=== PATIENT | female | born 1975 | race Caucasian/White ===

== ENCOUNTER 2017-12-19 01:22 | Inpatient (IN) | payer OTHER ==
[2017-12-19 01:47] VITALS: BMI 29.2
[2017-12-19] MEDS ORDERED: ALBUTEROL SO4 2.5/IPRATROPIUM 0.5 INH SOL 3 ML VIAL.NEB. NEB ONE ×2 (02:10→02:16)
--- NOTE | 2017-12-19 02:10 | PDOC ---
History of Present Illness - General History Source: Patient Exam Limitations: No Limitations - History of Present Illness Initial Comments: 12/19/17 02:23 The patient is a 42 year old female with a significant past medical history of asthma, anemia and AVM who presents to the ED s/p asthma exacerbation earlier today. The patient reports a sudden onset of shortness of breath and a non productive constant cough. She states she used her asthma inhaler 5 times tonight with no relief of present symptoms. Patient reports a similar episode 2 months ago and was treated with steroids. Denies fever or chills. Denies nausea, vomiting, or diarrhea. Denies chest pain or palpitations. Denies any other symptoms. <Denae Pereira - Last Filed: 12/19/17 06:00> <Kayla Taylor - Last Filed: 12/24/17 19:52> - General Chief Complaint: Asthma Stated Complaint: PALPITATION Time Seen by Provider: 12/19/17 01:55 Past History <Denae Pereira - Last Filed: 12/19/17 06:00> - Past Medical History Anemia: No Asthma: Yes Cancer: No Cardiac Disorders: No CVA: No COPD: No DVT: No Dementia: No Diabetes: No Dialysis: No GI Disorders: No Disorders: No HTN: No Hypercholesterolemia: No Kidney Stones: No Liver Disease: No Psychiatric Problems: No Seizures: No Thyroid Disease: No Lung CA: No - Reproductive History (#): 7 Para: 4 - Suicide/Smoking/Psychosocial Hx Smoking Status: No Smoking History: Never smoked Have you smoked in the past 12 months: No Number of Cigarettes Smoked Daily: 0 Hx Alcohol Use: No Drug/Substance Use Hx: No Substance Use Type: None Hx Substance Use Treatment: No <Kayla Taylor - Last Filed: 12/24/17 19:52> - Past Medical History Allergies/Adverse Reactions: Allergies Allergy/AdvReac Type Severity Reaction Status Date / Time No Known Allergies Allergy Verified 10/15/14 18:54 Home Medications: Ambulatory Orders Albuterol Sulfate Inhaler - [Ventolin HFA Inhaler -] 2 inh PO Q4H 12/19/17 Ferrous Sulfate [Feosol] 325 mg PO BID #60 ud 12/24/17 Loratadine [Claritin -] 10 mg PO DAILY tablet 04/14/18 predniSONE [Deltasone -] 40 mg PO DAILY #5 tablet 12/24/17 Review of Systems - Review of Systems Able to Perform ROS?: Yes Comments:: 12/19/17 02:23 CONSTITUTIONAL: Absent: fever, chills, diaphoresis, generalized weakness, malaise, loss of appetite HEENT: Absent: rhinorrhea, nasal congestion, throat pain, throat swelling, difficulty swallowing, mouth swelling, ear pain, eye pain, visual Changes CARDIOVASCULAR: Absent: chest pain, syncope, palpitations, irregular heart rate, lightheadedness , peripheral edema RESPIRATORY: + cough, shortness of breath Absent: dyspnea with exertion, orthopnea, wheezing, stridor, hemoptysis GASTROINTESTINAL: Absent: abdominal pain, abdominal distension, nausea, vomiting, diarrhea, constipation, melena, hematochezia GENITOURINARY: Absent: dysuria, frequency, urgency, hesitancy, hematuria, flank pain, genital pain MUSCULOSKELETAL: Absent: myalgia, arthralgia, joint swelling SKIN: Absent: rash, itching, pallor HEMATOLOGIC/IMMUNOLOGIC: Absent: easy bleeding, easy bruising, lymphadenopathy, frequent infections ENDOCRINE: Absent: unexplained weight gain, unexplained weight loss, heat intolerance, cold intolerance NEUROLOGIC: Absent: headache, focal weakness or paresthesias, dizziness, unsteady gait, seizure, mental status changes, bladder or bowel incontinence PSYCHIATRIC: Absent: anxiety, depression, suicidal or homicidal ideation, hallucinations. All Other Systems: Reviewed and Negative <Denae Pereira - Last Filed: 12/19/17 06:00> *Physical Exam - Vital Signs Last Vital Signs Temp Pulse Resp BP Pulse Ox 99.3 F 119 H 24 109/94 97 12/19/17 01:41 12/19/17 01:41 12/19/17 01:41 12/19/17 01:41 12/19/17 01:41 - Physical Exam Comments: 12/19/17 02:23 GENERAL: Well developed, well nourished. Awake and alert. No acute distress. HEENT: Normocephalic, atraumatic. PERRLA, EOMI. No conjunctival pallor. Sclera are non- icteric. Moist mucous membranes. Oropharynx is clear. NECK: Supple. Full ROM. No JVD. Carotid pulses 2+ and symmetric, without bruits. No thyromegaly. No lymphadenopathy. CARDIOVASCULAR: Regular rate and rhythm. No murmurs, rubs, or gallops. Distal pulses are 2+ and symmetric. PULMONARY: No evidence of respiratory distress. Lungs clear to auscultation bilaterally. No wheezing, rales or rhonchi. ABDOMINAL: Soft. Non-tender. Non-distended. No rebound or guarding. No organomegaly. Normoactive bowel sounds. MUSCULOSKELETAL Normal range of motion at all joints. No bony deformities or tenderness. No CVA tenderness. EXTREMITIES: No cyanosis. No clubbing. No edema. No calf tenderness. SKIN: Warm and dry. Normal capillary refill. No rashes. No jaundice. NEUROLOGICAL: Alert, awake, appropriate. Cranial nerves 2-12 intact. No deficits to light touch and temperature in face, upper extremities and lower extremities. No motor deficits in the in face, upper extremities and lower extremities. Normoreflexic in the upper and lower extremities. Normal speech. Toes are down- going bilaterally. Gait is normal without ataxia. PSYCHIATRIC: Cooperative. Good eye contact. Appropriate mood and affect. <Denae Pereira - Last Filed: 12/19/17 06:00> - Vital Signs Last Vital Signs Temp Pulse Resp BP Pulse Ox 99.3 F 119 H 24 109/94 97 12/19/17 01:41 12/19/17 01:41 12/19/17 01:41 12/19/17 01:41 12/19/17 01:41 <Kayla Taylor - Last Filed: 12/24/17 19:52> Heart Score/ECG Review #1 12/19/17 02:26 Vent rate 110 bpm ME interval 140 ms QRS duration 82 ms Sinus tachycardia Non specific ST and T changes Reported by: Dr. Taylor <Denae Pereira - Last Filed: 12/19/17 06:00> ED Treatment Course - LABORATORY CBC & Chemistry Diagram: 12/19/17 02:20 12/19/17 02:20 <Denae Pereira - Last Filed: 12/19/17 06:00> - LABORATORY CBC & Chemistry Diagram: 12/24/17 11:43 12/24/17 11:43 <Kayla Taylor - Last Filed: 12/24/17 19:52> Medical Decision Making - Medical Decision Making 12/19/17 04:13 Pt comes with SOB; and cough they think this is her asthma. Pt has no wheezing in the ER, but sje is coughing. 12/19/17 04:14 Pt has a microcytic anemia. She also has hypokalemia. Pt also has EKG changes. 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
[2017-12-19] MEDS ORDERED: MAGNESIUM SULF 50% (8.12 MEQ/2 ML-1 GM VIAL) IVPB ONE (02:18)
[2017-12-19] MEDS ORDERED: methylPREDNISolone NA SUCC 125 MG/2 ML VIAL IVPB ONE (02:18)
[2017-12-19] MEDS ORDERED: SODIUM CHLORIDE 0.9% 500 ML INFUS.BAG IV ONE (02:25)
[2017-12-19 02:28] LABS: BASO % 0.6 % (0-2.0); EOS % 0.1 % (0-4.5); LYMPH % 13.6 % (8-40); MCHC 30.8 g/dl (32.0-36.0); MEAN CELL VOLUME 57.3 fl (80-96); MEAN PLT VOLUME 8.9 fl (7.5-11.1); MONO % 7.1 % (3.8-10.2); NEUT % 78.6 % (42.8-82.8); PLATELET COUNT 242 K/MM3 (134-434); RBC 4.53 M/mm3 (3.60-5.2); RDW 21.9 % (11.6-15.6); WHITE BLOOD COUNT 9.7 K/mm3 (4.0-10.0)
[2017-12-19 02:42] LABS: ADD RBC MORPHOLOGY YES; ANISOCYTOSIS 2+; MCH 17.6 pg (25.7-33.7)
[2017-12-19] MEDS ORDERED: methylPREDNISolone NA SUCC 125 MG/2 ML VIAL ONE (02:50)
[2017-12-19] MEDS ORDERED: MAGNESIUM SULF 50% (8.12 MEQ/2 ML-1 GM VIAL) ONE (02:50)
[2017-12-19 02:55] LABS: ALBUMIN 4.4 g/dl (3.4-5.0); ALK PHOS 67 U/L (45-117); ANION GAP 12 (8-16); BILIRUBIN,TOTAL 0.2 mg/dL (0.2-1.0); BLOOD UREA NITROGEN 12 mg/dL (7-18); CALCIUM 9.3 mg/dL (8.5-10.1); CHLORIDE 106 mmol/L (98-107); CO2 22 mmol/L (21-32); CREATININE 0.7 mg/dL (0.55-1.02); GLUCOSE,RANDOM 172 mg/dL (74-106); POTASSIUM 3.3 mmol/L (3.5-5.1); SGOT/AST 19 U/L (15-37); SGPT/ALT 29 U/L (12-78); SODIUM 140 mmol/L (136-145); TOT PROT 8.1 g/dl (6.4-8.2)
[2017-12-19] MEDS ORDERED: POTASSIUM CHLORIDE ORAL LIQUID 20 MEQ/15 ML PO ONE (03:04)
[2017-12-19] MEDS ORDERED: POTASSIUM CHLORIDE ORAL LIQUID 20 MEQ/15 ML ONE ×2 (04:40→08:35)
--- NOTE | 2017-12-19 06:08 | HP ---
CHIEF COMPLAINT: SOB, non-productive cough, and chest tightness x 1 day duration PCP: Dr. Frazier HISTORY OF PRESENT ILLNESS: 42 y/o F with PMH asthma, anemia and AVM, who presents to the ED c/o SOB, non- productive cough, and chest tightness for one day duration. Pt states that her sx are of similar quality to her asthma exacerbations. Since her initial presentation, her chest tightness and SOB have resolved. Pt states that she was diagnosed with anemia fifteen years ago after receiving an IUD for control , after which she started to develop heavy periods. She continued to have heavy periods after the IUD was removed ten years later. Pt follows with her PMD every three months for her anemia, and states that two months ago her blood count was "relatively normal." She states that she was referred to a manager software development six months ago, but has not yet made an appointment. Currently, pt endorsing dizziness, but denies chest pain, SOB, N/V/D. Pt denies ever having a colonoscopy. ER course was notable for: (1) H/H: 05/07 (2) K 3.3, KCl 40mEq x 1 (3) Duoneb x 1 (4) Solumedrol 125mg IVPB x 1 (5) Mg Sulfate 2gm IVPB x 1 (6) [id number] Recent Travel: none PAST MEDICAL HISTORY: as above PAST SURGICAL HISTORY: none Social History: Smoking: denies Alcohol: denies Drugs: denies Family History: non-contributory Allergies No Known Allergies Allergy (Verified 10/15/14 18:54) HOME MEDICATIONS: Home Medications Medication Instructions Recorded Albuterol Sulfate Inhaler - 2 inh PO Q4H 12/19/17 [Ventolin Hfa Inhaler -] REVIEW OF SYSTEMS CONSTITUTIONAL: generalized weakness Absent: fever, chills, diaphoresis, malaise, loss of appetite, weight change HEENT: Absent: rhinorrhea, nasal congestion, throat pain, throat swelling, difficulty swallowing, mouth swelling, ear pain, eye pain, visual changes CARDIOVASCULAR: Absent: chest pain, syncope, palpitations, irregular heart rate, lightheadedness , peripheral edema RESPIRATORY: Absent: cough, shortness of breath, dyspnea with exertion, orthopnea, wheezing, stridor, hemoptysis GASTROINTESTINAL: Absent: abdominal pain, abdominal distension, nausea, vomiting, diarrhea, constipation, melena, hematochezia GENITOURINARY: Absent: dysuria, frequency, urgency, hesitancy, hematuria, flank pain, genital pain MUSCULOSKELETAL: Absent: myalgia, arthralgia, joint swelling, back pain, neck pain SKIN: Absent: rash, itching, pallor HEMATOLOGIC/IMMUNOLOGIC: Absent: easy bleeding, easy bruising, lymphadenopathy, frequent infections ENDOCRINE: Absent: unexplained weight gain, unexplained weight loss, heat intolerance, cold intolerance NEUROLOGIC: Absent: headache, focal weakness or paresthesias, dizziness, unsteady gait, seizure, mental status changes, bladder or bowel incontinence PSYCHIATRIC: Absent: anxiety, depression, suicidal or homicidal ideation, hallucinations. PHYSICAL EXAMINATION Vital Signs - 24 hr 12/19/17 01:41 Temperature 99.3 F Pulse Rate 119 H Respiratory 24 Rate Blood Pressure 109/94 O2 Sat by Pulse 97 Oximetry (%) GENERAL: A&Ox3, no acute distress EYES: PERRLA, EOMI, mild conjunctival pallor noted ENT: Moist mucus membranes NECK: No JVD LUNGS: CTA, no wheezes HEART: RRR, systolic murmur noted at 2nd R intercostal space ABDOMEN: Soft, nontender, BS present MUSCULOSKELETAL: No CVA Tenderness EXTREMITIES: 2+ pulses, no edema. NEUROLOGICAL: Cranial nerves II-XII intact. Laboratory Results - last 24 hr 12/19/17 12/19/17 12/19/17 02:20 02:20 02:20 WBC 9.7 D RBC 4.53 Hgb 8.0 L D Hct 26.0 L D MCV 57.3 L MCH 17.6 L MCHC 30.8 L RDW 21.9 H D Plt Count 242 MPV 8.9 D Neutrophils % 78.6 D Lymphocytes % 13.6 D Monocytes % 7.1 Eosinophils % 0.1 D Basophils % 0.6 Hypochromia 3+ Anisocytosis 2+ Microcytosis 3+ Sodium 140 Potassium 3.3 L Chloride 106 Carbon Dioxide 22 Anion Gap 12 BUN 12 Creatinine 0.7 Creat Clearance w eGFR > 60 Random Glucose 172 H Calcium 9.3 Total Bilirubin 0.2 D AST 19 ALT 29 Alkaline Phosphatase 67 Creatine Kinase 146 Troponin I 0.02 Total Protein 8.1 Albumin 4.4 Urine HCG, Qual 12/19/17 03:00 WBC RBC Hgb Hct MCV MCH MCHC RDW Plt Count MPV Neutrophils % Lymphocytes % Monocytes % Eosinophils % Basophils % Hypochromia Anisocytosis Microcytosis Sodium Potassium Chloride Carbon Dioxide Anion Gap BUN Creatinine Creat Clearance w eGFR Random Glucose Calcium Total Bilirubin AST ALT Alkaline Phosphatase Creatine Kinase Troponin I Total Protein Albumin Urine HCG, Qual Negative ASSESSMENT/PLAN: 42 y/o F with PMH asthma, anemia and AVM, who presents to the ED c/o SOB, non- productive cough, and chest tightness for one day duration. Pt admitted to for observation for evaluation of microcytic anemia. #Microcytic anemia: patient's hemoglobin is 8 -orthostatic vitals -type and screen, transfuse if hgb <7 -repeat CBC -hematology consultation appreciated -IV NS @ 100cc/hr -ferrous sulfate 325 TIDCM #Asthma: improved -monitor respiratory status -duonebs as needed #Hypokalemia: first time hypokalemic -K 3.3 -Repleted with KCl 40mEq in ED -F/u BMP, replete as needed #Mild Hyperglycemia: patient's glucose was 172 in ED and was told she had a high sugar -A1C #F/E/N -IV NS @ 100cc/hr -replete lytes as necessary -regular diet #PPX -early ambulation #Disposition -admit for observation Visit type - Emergency Visit Emergency Visit: Yes Care time: The patient presented to the Emergency Department on the above date and was hospitalized for further evaluation of their emergent condition. - New Patient This patient is new to me today: Yes Date on this admission: 12/19/17 - Critical Care Critical Care patient: No Hospitalist Screening - Colonoscopy Questionnaire Colonoscopy Questionnaire: Colonoscopy Questionnaire - Patient: 50 - 75 years old and never had a screening colonoscopy: Unknown History of colon or rectal polyps, or CA: Unknown History of IBD, Crohn's disease or UC: Unknown History of abdominal radiation therapy as a child: Unknown - Relative: 1 with colon or rectal CA, or polyps at age 60 or younger: Unknown Colon or rectal CA diagnosed at age 45 or younger: Unknown Multiple relatives with colon or rectal CA: Unknown - Outcome: Screening Result: Negative Screen
--- NOTE | 2017-12-19 06:47 | PN ---
Teaching Attending Note Name of Resident: Lawrence Ballesteros ATTENDING PHYSICIAN STATEMENT I saw and evaluated the patient. I reviewed the resident's note and discussed the case with the resident. I agree with the resident's findings and plan as documented. SUBJECTIVE: 42F with asthma, anemia presents initially to ED with SOB, wheezing, that have since improved since administration of Duonebs and steroids. However afterwards developed dizziness OBJECTIVE: Lungs: CTA CV: RRR no m/r/g Abd: soft, NTND Ext: no edema Hgb 8 MCV 50s K 3.3 ASSESSMENT AND PLAN: 42F with asthma exacerbation improved with ED management, however persisted dizziness that is likely from her anemia monitor on Obs check iron profile, start oral Iron, hematology eval obtain hgb levels from her outpatient PCP Dr Frazier office who checks q3mths hypokalemia - replete asthma mild exacerbation improving duonebs prn prednisone 40mg daily 5 days
[2017-12-19] MEDS ORDERED: ALBUTEROL SO4 2.5/IPRATROPIUM 0.5 INH SOL 3 ML VIAL.NEB. NEB PRN (07:25)
[2017-12-19] MEDS: SODIUM CHLORIDE 1,000 ML IV SCH ×2 (08:42→20:00)
[2017-12-19 09:14] LABS: HEMATOCRIT 24.3 % (32.4-45.2); HEMOGLOBIN 7.4 GM/dL (10.7-15.3); MCHC 30.5 g/dl (32.0-36.0); MEAN CELL VOLUME 57.4 fl (80-96); MEAN PLT VOLUME 8.7 fl (7.5-11.1); PLATELET COUNT 247 K/MM3 (134-434); RBC 4.24 M/mm3 (3.60-5.2); RDW 22.1 % (11.6-15.6); WHITE BLOOD COUNT 10.9 K/mm3 (4.0-10.0)
[2017-12-19 09:15] LABS: MCH 17.5 pg (25.7-33.7)
[2017-12-19] MEDS: FERROUS SO4 325 MG TABLET (FP) PO SCH ×3 (09:23→18:06)
[2017-12-19] MEDS: predniSONE 20 MG TABLET (UD) PO SCH (09:23)
[2017-12-19 09:34] LABS: ANION GAP 9 (8-16); BLOOD UREA NITROGEN 9 mg/dL (7-18); CALCIUM 8.5 mg/dL (8.5-10.1); CHLORIDE 109 mmol/L (98-107); CO2 21 mmol/L (21-32); CREATININE 0.6 mg/dL (0.55-1.02); GLUCOSE,RANDOM 153 mg/dL (74-106); MAGNESIUM 2.5 mg/dL (1.8-2.4); PHOSPHOROUS 3.1 mg/dL (2.5-4.9); POTASSIUM 4.7 mmol/L (3.5-5.1); SODIUM 139 mmol/L (136-145)
[2017-12-19] MEDS ORDERED: PANTOPRAZOLE SODIUM 40 MG VIAL IVPUSH ONE (13:30)
[2017-12-19] MEDS: ALBUTEROL SO4 2.5/IPRATROPIUM 0.5 INH SOL 3 ML VIAL.NEB. NEB SCH (17:00)
--- NOTE | 2017-12-19 17:16 | PN ---
Physical Exam: SUBJECTIVE: Patient seen and examined. OBJECTIVE: Vital Signs Period Temp Pulse Resp BP Sys/Persaud Pulse Ox Last 24 Hr 98.1 F-99.3 F 69-119 18-24 106-120/57-94 97-100 GENERAL: The patient is awake, alert, and fully oriented, in no acute distress. HEAD: Normal with no signs of trauma. EYES: PERRL, extraocular movements intact, sclera anicteric, conjunctiva clear. No ptosis. ENT: Ears normal, nares patent, oropharynx clear without exudates, moist mucous membranes. NECK: Trachea midline, full range of motion, supple. LUNGS: Breath sounds equal, clear to auscultation bilaterally HEART: Regular rate and rhythm, S1, S2 without murmur, rub or gallop. ABDOMEN: Soft, nontender, nondistended, normoactive bowel sounds EXTREMITIES: no edema. NEUROLOGICAL: Normal speech, gait not observed. PSYCH: Normal mood, normal affect. SKIN: Warm, dry, normal turgor, no rashes or lesions noted Laboratory Results - last 24 hr 12/19/17 12/19/17 12/19/17 02:20 02:20 02:20 WBC 9.7 D RBC 4.53 Hgb 8.0 L D Hct 26.0 L D MCV 57.3 L MCH 17.6 L MCHC 30.8 L RDW 21.9 H D Plt Count 242 MPV 8.9 D Neutrophils % 78.6 D Lymphocytes % 13.6 D Monocytes % 7.1 Eosinophils % 0.1 D Basophils % 0.6 Hypochromia 3+ Anisocytosis 2+ Microcytosis 3+ Sodium 140 Potassium 3.3 L Chloride 106 Carbon Dioxide 22 Anion Gap 12 BUN 12 Creatinine 0.7 Creat Clearance w eGFR > 60 Random Glucose 172 H Calcium 9.3 Phosphorus Magnesium Total Bilirubin 0.2 D AST 19 ALT 29 Alkaline Phosphatase 67 Creatine Kinase 146 Troponin I 0.02 Total Protein 8.1 Albumin 4.4 Vitamin B12 Serum Folate Urine HCG, Qual Blood Type Antibody Screen 12/19/17 12/19/17 12/19/17 03:00 09:05 09:05 WBC 10.9 H RBC 4.24 Hgb 7.4 L Hct 24.3 L MCV 57.4 L MCH 17.5 L MCHC 30.5 L RDW 22.1 H Plt Count 247 MPV 8.7 Neutrophils % Lymphocytes % Monocytes % Eosinophils % Basophils % Hypochromia Anisocytosis Microcytosis Sodium 139 Potassium 4.7 Chloride 109 H Carbon Dioxide 21 Anion Gap 9 BUN 9 Creatinine 0.6 Creat Clearance w eGFR Random Glucose 153 H Calcium 8.5 Phosphorus 3.1 Magnesium 2.5 H Total Bilirubin AST ALT Alkaline Phosphatase Creatine Kinase Troponin I Total Protein Albumin Vitamin B12 Serum Folate Urine HCG, Qual Negative Blood Type Antibody Screen 12/19/17 12/19/17 09:05 09:05 WBC RBC Hgb Hct MCV MCH MCHC RDW Plt Count MPV Neutrophils % Lymphocytes % Monocytes % Eosinophils % Basophils % Hypochromia Anisocytosis Microcytosis Sodium Potassium Chloride Carbon Dioxide Anion Gap BUN Creatinine Creat Clearance w eGFR Random Glucose Calcium Phosphorus Magnesium Total Bilirubin AST ALT Alkaline Phosphatase Creatine Kinase Troponin I Total Protein Albumin Vitamin B12 031240 H Serum Folate 23 H Urine HCG, Qual Blood Type O POSITIVE Antibody Screen Negative Active Medications Generic Name Dose Route Start Last Admin Trade Name Freq PRN Reason Stop Dose Admin Albuterol/Ipratropium 1 amp 12/19/17 16:00 Duoneb - NEB RQID DEBRA Ferrous Sulfate 325 mg 12/19/17 08:00 12/19/17 09:23 Feosol - PO 325 mg TIDCM DEBRA Administration Sodium Chloride 1,000 mls @ 100 mls/hr 12/19/17 06:45 12/19/17 08:42 Normal Saline - IV 100 mls/hr ASDIR DEBRA Administration Prednisone 40 mg 12/19/17 10:00 12/19/17 09:23 Deltasone - PO 12/24/17 09:59 40 mg DAILY DEBRA Administration Ranitidine HCl 150 mg 12/19/17 22:00 Zantac - PO BID DEBRA Imaging: Chest xray: clear lungs ASSESSMENT/PLAN: Patient is a 42 year old female with a significant past medical history of asthma, former ETOH/drug abuse, anemia and anteriovenous malformation with chronic headaches. Patient presents to the ED on 12/19 with c/o of shortness of breath, non productive cough, chest tightness and symptoms of dizziness with ambulation Pt states that she was diagnosed with anemia fifteen years ago after receiving an IUD and then developed heavy menstruation. Patient follows her PCP routiney for monitoring of her anemia. She has never received a blood transfusion. She was told she needed to follow up with a instructor looping, but was unable to for insurance reasons. She had workup for her AVM done at [facility] one year ago. She reports chronic headaches 06/21 without relief with Tylenol. Pulm: Asthma exacerbation, acute on chronic On prednisone 40mg daily x 5 days Supplemental oxygen Tolerating room air Pulm following Psyche: Former ETOH/drug abuse Recovering, patient does not want to be prescribed any narcotics Receives support outpatient Heme: Symptomatic anemia Monitor CBC Transfuse if hmg <7 Stool for occult blood ordered Consider CHIMNEY SWEEPER consult outpatient for further workup, possible hysterectomy for heavy periods and unintended wht loss of 35lbs in last 6 months as per pt Heme following Neuro: AV malformation with chronic headaches Will start on Fiorcet prn Head CT tomorrow (awaiting urine ) Monitor headaches Consider neuro consult outpatient Endocrine; Elevated Bgms, [id number] ordered F.E.N. Fluids: PO adequate Electrolytes: wnl Nutrition: regular diet Prophy: DVT: ambulatory Gi: Protonix full code Visit type - Emergency Visit Emergency Visit: Yes ED Registration Date: 12/19/17 Care time: The patient presented to the Emergency Department on the above date and was hospitalized for further evaluation of their emergent condition. - New Patient This patient is new to me today: No - Critical Care Critical Care patient: No - Discharge Referral [facility]erred [facility] No
--- NOTE | 2017-12-19 20:05 | CONSULT ---
Consult Consult Specialty:: Hematology-Oncology Referred by:: Dr Sharyn Beckwith Reason for Consultation:: anemia - History of Present Illness Chief Complaint: c/o SOB/asthma attack History of Present Illness: 42 y/o H Female with a Hx of anemia X 15 years (started after IUD placed - removed 10 years later ) , presumably from heavy menses and iron deficiency , Rx w oral iron supp on and off , but not in last 5-6 years ; pt reports she never had blood Tx ; she was admitted for increased SOB X 1 day not responding to inhaler. In ER , H/H was low at 8/26 w MCV 57 , plates 242K and WBC 9.7 w unremarkable diff ; 3+ microcytes and hypochromia . Pt had nl B12/folate, LFT's , Calcium,T.prot/albumin / CPK / HCG.CXR neg. Pt Rx w Prednisone , nebs, feeling somewhat better . She reports abnormal menstrual cycles over past year , w 2-3 months without menses , but then has heavy 10-15 day bleeding . She has occ lower abdominal cramps cramps . She also reports easy bruising X 3 months , linette legs ; she denies epistaxis/gingival bleeding/melena/BRBPR/hematuria/ hemoptysis. Pt is , 1 ab 1 miscarriage ( mole 2-3 yrs ago).She reports a 35 lb weight loss over 6 months but appetite OK ; mild fatigue . Cuurrently she has mild vaginal bleeding on and off since 4-18. 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: Other (hx AVM causing R eye blindness ) Cardio/Vascular: No: AFIB, Aneurysm, Aortic Insufficiency, Aortic Stenosis, CAD , CHF, Deep Vein Thrombosis, HTN, Hyperlipdemia, OK, Mitral Insufficiency, Mitral Stenosis, Murmur, Pulmonary Hypertension, Other Pulmonary: Yes: Asthma Gastrointestinal: No: Ascites, Cancer, Constipation, Crohn's Disease, Diverticulitis, Diverticulosis, Esophageal Varices, Gastritis, GERD, GI Bleed, Hemorrhoids, Hiatal Hernia, Inflamatory Bowel Disease, Irritable Bowel Disease, Pancreatitis, Peptic Ulcer Disease, Ulcerative Colitis, Other Hepatobiliary: No: Cirrhosis, Cholelithiasis, Cholecystitis, Choledocholithiasis , Hepatitis A, Hepatitis B, Hepatitis C, Other Reproductive: Yes: Other (perimenopausal, heavy irreg menses) ...LMP: 12/16/17 ...: 7 ...Para: 5 Heme/Onc: Yes: Anemia Infectious Disease: No: AIDS, C-Diff, Herpes Zoster, HIV, MRSA, STD's, Tuberculosis, VREF, Other Psych: No: Addictions, Anxiety, Bipolar, Depression, Panic, Psychosis, Schizophrenia, Other Musculoskeletal: No: Bursitis, Chronic low back pain, Hemiparesis, Hemiplegia, Osteoarthritis, Paraplegia, Other Rheumatology: No: Fibromyalgia, Gout, Lupus, Rheumatoid Arthritis, Sarcoidosis, Vasculitis, Other Endocrine: No: Alexis's Disease, Jeffrey's Disease, Diabetes Insipidus, Diabetes Mellitus, Hyperparathyroidism, Hyperthyroidism, Hypothyroidism, Osteopenia, SIADH, Other Dermatology: No: Basal Cell, Cellulitis, Eczema, Melanoma, Psoriasis, Squamous Cell, Other - Past Surgical History Past Surgical History: No: None, AAA Repair, AICD, Amputation, Appendectomy, Arthrosocopy, AV Fistula/Graft, Bariatric Surgery, Breast Biopsy, Bypass, CABG, Carotid Endarterectomy, Cataract Removal, Cholecystectomy, Colectomy, Colonoscopy, Colostomy, Craniotomy, , Cystectomy, Hernia Repair, Hysterectomy, Ileal Conduit, Ileosotomy, Joint Replacement, Kidney Transplant, Laminectomy, Liver Transplant, Mastectomy, Nephrectomy, Oopherectomy, Orchiectomy, Permanent Pacemaker, Prostatectomy, Splenectomy, Stent, Thoracotomy , TURP, Tonsillectomy, Tubal Ligation, Upper Endoscopy, Valve Replacement, Vasectomy, Vein Stripping/Ligation - Alcohol/Substance Use Hx Alcohol Use: Yes (in past , over 17 yrs ago) History of Substance Use: reports: Heroin - Smoking History Smoking history: Never smoked Have you smoked in the past 12 months: No Aproximately how many cigarettes per day: 0 Home Medications - Allergies Allergies/Adverse Reactions: Allergies Allergy/AdvReac Type Severity Reaction Status Date / Time No Known Allergies Allergy Verified 10/15/14 18:54 - Home Medications Home Medications: Ambulatory Orders Albuterol Sulfate Inhaler - [Ventolin Hfa Inhaler -] 2 inh PO Q4H 12/19/17 Family Disease History - Family Disease History Family Disease History: Heart Disease: Mother (CVA) Other Family History: 3 siblings -WNL ; hx anemia in several cousins/grandmother Review of Systems - Review of Systems Constitutional: reports: Unintentional Wgt. Loss, Other (hot flashes) Eyes: reports: Blurred Vision (right) HENT: reports: No Symptoms Neck: reports: No Symptoms Cardiovascular: reports: Shortness of Breath Respiratory: reports: Cough, SOB, SOB on Exertion, Wheezing Gastrointestinal: reports: Abdominal Pain (occ.) Genitourinary: reports: No Symptoms Breasts: reports: No Symptoms Reported, Other (recent mammogram nl) Musculoskeletal: reports: No Symptoms Integumentary: reports: Bruising, Rash (nafisa-oral rash , reportedly anxiety assoc) Physical Exam Vital Signs: Vital Signs Temperature 98.1 F 12/19/17 17:10 Pulse Rate 99 H 12/19/17 17:10 Respiratory Rate 20 12/19/17 17:10 Blood Pressure 120/57 12/19/17 17:10 O2 Sat by Pulse Oximetry (%) 100 12/19/17 13:02 Constitutional: Yes: Well Nourished, Anxious, Mild Distress, Pallor Eyes: Yes: Conjunctiva Clear, EOM Intact (decreased vision OD). No: WNL, Cataracts, Diplopia, Occular Prosthesis, PERRL, Ptosis, Sclera Icterus, Tearing , Other HENT: Yes: WNL, Atraumatic, Normocephalic Neck: Yes: WNL, Supple, Trachea Midline Cardiovascular: Yes: WNL, Regular Rate and Rhythm Respiratory: Yes: Diminished, Wheezes Gastrointestinal: Yes: WNL, Normal Bowel Sounds, Soft, Hernia (mild abd wall hernia) Musculoskeletal: Yes: WNL Extremities: Yes: WNL Edema: No Peripheral Pulses WNL: Yes Integumentary: Yes: Other (few patches or erythema nafisa-oral) Neurological: Yes: WNL, Alert, Oriented Psychiatric: Yes: WNL, Alert Labs: CBC, BMP 12/19/17 09:05 12/19/17 09:05 Assessment/Plan 42 y/o F , former IVDA and ETOH abuser ( reports nl HIV/Hep profile recently) , w microcytic anemia c/w iron def/blood loss X 15 yrs prob due to heavy menses ; asthma/SOB prob exacerbated by the anemia. Pt also w unexplaines weight loss , easy bruising (not seen now) , vague pelvic /abdo discomfort. Will recomend labs : Hgb electropheresis ,LDH , iron studies, thyroid panel, CBC/Retic ,PT/PTT ; will try to do BM exam in hospital tomorrow r/o underlying BM problem eg MDS .Following BM exam can get one dose iv iron 200mg and remain on oral iron 325mg qd till results of BM available. Suggest abdo US and trans-vaginal pelvic US while hospitalized.Pt reports she needs a neurosurgery referral to [facility] to look into Rx of her AVM.
[2017-12-19] MEDS: RANITIDINE HCL 150 MG TABLET (FP) PO SCH (21:30)
[2017-12-19] MEDS ORDERED: ACETAMINOPHEN/CAFFEINE/BUTALBITAL 1 TAB PO PRN (22:15)
--- NOTE | 2017-12-19 23:51 | EKG ---
Test Reason : Blood Pressure : / mmHG Vent. Rate : 110 BPM Atrial Rate : 110 BPM P-R Int : 140 ms QRS Dur : 082 ms QT Int : 334 ms P-R-T Axes : 068 061 033 degrees QTc Int : 452 ms SINUS TACHYCARDIA POSSIBLE LEFT ATRIAL ENLARGEMENT NONSPECIFIC ST AND T WAVE ABNORMALITY ABNORMAL ECG WHEN COMPARED WITH ECG OF 08-NOV-2012 11:11, VENT. RATE HAS INCREASED Confirmed by SONG MEDEIROS, CHRISTIANO ([id number]) on 12/19/2017 11:51:20 PM Referred By: Confirmed By:CHRISTIANO ZULETA MD
[2017-12-20] MEDS: SODIUM CHLORIDE 1,000 ML IV SCH ×2 (04:32→09:03)
[2017-12-20 06:08] LABS: SERUM IRON SATURATION 2 % (15-55); TOTAL IRON BINDING CAPACITY 504 ug/dL (250-450); UIBC 492 ug/dL (131-425)
[2017-12-20] MEDS: ALBUTEROL SO4 2.5/IPRATROPIUM 0.5 INH SOL 3 ML VIAL.NEB. NEB SCH ×4 (07:49→21:44)
[2017-12-20 08:04] LABS: BASO % 0.9 % (0-2.0); EOS % 0.4 % (0-4.5); HEMATOCRIT 21.5 % (32.4-45.2); LYMPH % 35.3 % (8-40); MEAN CELL VOLUME 57.5 fl (80-96); MEAN PLT VOLUME 8.8 fl (7.5-11.1); MONO % 10.7 % (3.8-10.2); NEUT % 52.7 % (42.8-82.8); PLATELET COUNT 204 K/MM3 (134-434); RBC 3.73 M/mm3 (3.60-5.2); RDW 22.1 % (11.6-15.6); WHITE BLOOD COUNT 8.6 K/mm3 (4.0-10.0)
[2017-12-20 08:19] LABS: MCH 17.8 pg (25.7-33.7)
[2017-12-20 08:21] LABS: HEMOGLOBIN 6.6 GM/dL (10.7-15.3)
--- NOTE | 2017-12-20 08:48 | PN ---
Physical Exam: SUBJECTIVE: Patient seen and examined at the bedside. Feels dizzy today, much weaker. Agreeing to a prbc transfusion OBJECTIVE: hmg/hct dropped, her symptom are consistent with symptomatic anemia Still having headaches, this is chronic but will Ct scan head after prbc transfusion Tolerating room air Vital Signs Period Temp Pulse Resp BP Sys/Persaud Pulse Ox Last 24 Hr 98.1 F-98.1 F 64-99 18-20 110-120/57-73 97-100 GENERAL: The patient is awake, alert, and fully oriented, in no acute distress. HEAD: Normal with no signs of trauma. EYES: PERRL, extraocular movements intact, sclera anicteric, conjunctiva clear. No ptosis. ENT: Ears normal, nares patent, oropharynx clear without exudates, moist mucous membranes. NECK: Trachea midline, full range of motion, supple. LUNGS: Breath sounds equal, clear to auscultation bilaterally HEART: Regular rate and rhythm, S1, S2 without murmur, rub or gallop. ABDOMEN: Soft, nontender, nondistended, normoactive bowel sounds EXTREMITIES: no edema. NEUROLOGICAL: Normal speech, gait not observed. PSYCH: Normal mood, normal affect. SKIN: Warm, dry, normal turgor, no rashes or lesions noted Laboratory Results - last 24 hr 12/19/17 12/19/17 12/19/17 09:05 09:05 09:05 WBC 10.9 H RBC 4.24 Hgb 7.4 L Hct 24.3 L MCV 57.4 L MCH 17.5 L MCHC 30.5 L RDW 22.1 H Plt Count 247 MPV 8.7 Neutrophils % Lymphocytes % Monocytes % Eosinophils % Basophils % Sodium 139 Potassium 4.7 Chloride 109 H Carbon Dioxide 21 Anion Gap 9 BUN 9 Creatinine 0.6 Random Glucose 153 H Calcium 8.5 Phosphorus 3.1 Magnesium 2.5 H Iron TIBC Iron Saturation Transferrin Ferritin LD Total Troponin I Vitamin B12 Serum Folate TSH Free T4 Blood Type O POSITIVE Antibody Screen Negative Crossmatch See Detail 12/19/17 12/19/17 12/19/17 09:05 09:05 09:05 WBC RBC Hgb Hct MCV MCH MCHC RDW Plt Count MPV Neutrophils % Lymphocytes % Monocytes % Eosinophils % Basophils % Sodium Potassium Chloride Carbon Dioxide Anion Gap BUN Creatinine Random Glucose Calcium Phosphorus Magnesium Iron 12 L TIBC 504 H Iron Saturation 2 L Transferrin 406 H Ferritin LD Total Troponin I Vitamin B12 956345 H Serum Folate 23 H TSH Free T4 Blood Type Antibody Screen Crossmatch 12/19/17 12/20/17 12/20/17 18:40 06:15 06:15 WBC 8.6 RBC 3.73 Hgb 6.6 L* D Hct 21.5 L MCV 57.5 L MCH 17.8 L MCHC 31.0 L RDW 22.1 H Plt Count 204 MPV 8.8 Neutrophils % 52.7 D Lymphocytes % 35.3 D Monocytes % 10.7 H Eosinophils % 0.4 D Basophils % 0.9 Sodium Potassium Chloride Carbon Dioxide Anion Gap BUN Creatinine Random Glucose Calcium Phosphorus Magnesium Iron TIBC Iron Saturation Transferrin Ferritin LD Total Cancelled Troponin I 0.03 Vitamin B12 Serum Folate TSH Free T4 Blood Type Antibody Screen Crossmatch 12/20/17 12/20/17 06:15 06:15 WBC RBC Hgb Hct MCV MCH MCHC RDW Plt Count MPV Neutrophils % Lymphocytes % Monocytes % Eosinophils % Basophils % Sodium Potassium Chloride Carbon Dioxide Anion Gap BUN Creatinine Random Glucose Calcium Phosphorus Magnesium Iron TIBC Iron Saturation Transferrin Ferritin 4.581 L LD Total Troponin I Vitamin B12 Serum Folate TSH 0.59 Free T4 Cancelled Blood Type Antibody Screen Crossmatch Active Medications Generic Name Dose Route Start Last Admin Trade Name Freq PRN Reason Stop Dose Admin Acetaminophen/Butalbital/Caffeine 1 tablet 12/19/17 22:15 Fioricet - PO Q6H PRN HEADACHE Albuterol/Ipratropium 1 amp 12/19/17 16:00 12/20/17 07:49 Duoneb - NEB 1 amp RQID DEBRA Administration Ferrous Sulfate 325 mg 12/19/17 08:00 12/19/17 18:06 Feosol - PO 325 mg TIDCM DEBRA Administration Sodium Chloride 1,000 mls @ 100 mls/hr 12/19/17 06:45 12/20/17 04:32 Normal Saline - IV 100 mls/hr ASDIR DEBRA Administration Prednisone 40 mg 12/19/17 10:00 12/19/17 09:23 Deltasone - PO 12/24/17 09:59 40 mg DAILY DEBRA Administration Ranitidine HCl 150 mg 12/19/17 22:00 12/19/17 21:30 Zantac - PO 150 mg BID DEBRA Administration Imaging: Chest xray: clear lungs ASSESSMENT/PLAN: Patient is a 42 year old female with a significant past medical history of asthma, former ETOH/drug abuse, anemia and anteriovenous malformation with chronic headaches. Patient presents to the ED on 12/19 with c/o of shortness of breath, non productive cough, chest tightness and symptoms of dizziness with ambulation Pt states that she was diagnosed with anemia fifteen years ago after receiving an IUD and then developed heavy menstruation. Patient follows her PCP routiney for monitoring of her anemia. She has never received a blood transfusion. She was told she needed to follow up with a water control station engineer, but was unable to for insurance reasons. She had workup for her AVM done at [facility] one year ago. She reports chronic headaches 06/21 without relief with Tylenol. 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 Fluids: PO adequate Electrolytes: wnl Nutrition: regular diet Prophy: DVT: ambulatory Gi: zantac full code Visit type - Emergency Visit Emergency Visit: Yes ED Registration Date: 12/19/17 Care time: The patient presented to the Emergency Department on the above date and was hospitalized for further evaluation of their emergent condition. - New Patient This patient is new to me today: Yes Date on this admission: 12/20/17 - Critical Care Critical Care patient: No - Discharge Referral Referred to [facility] Med P.C.: No
[2017-12-20] MEDS ORDERED: ACETAMINOPHEN/CAFFEINE/BUTALBITAL 1 TAB PO ONE (08:52)
[2017-12-20] MEDS: FERROUS SO4 325 MG TABLET (FP) PO SCH ×3 (09:02→17:36)
[2017-12-20] MEDS: RANITIDINE HCL 150 MG TABLET (FP) PO SCH ×2 (09:02→21:16)
[2017-12-20] MEDS: predniSONE 20 MG TABLET (UD) PO SCH (09:03)
[2017-12-20] MEDS ORDERED: LIDOCAINE HCL 1%, 10 MG/ML (20ML VIAL) ONE (09:30)
--- NOTE | 2017-12-20 10:11 | PN ---
Progress Note, Physician Chief Complaint: SOB History of Present Illness: 42 y/o H Female with a Hx of anemia X 15 years (started after IUD placed - removed 10 years later ) , presumably from heavy menses and iron deficiency , Rx w oral iron supp on and off , but not in last 5-6 years ; pt reports she never had blood Tx ; she was admitted for increased SOB X 1 day not responding to inhaler. In ER , H/H was low at 8/26 w MCV 57 , plates 242K and WBC 9.7 w unremarkable diff ; 3+ microcytes and hypochromia . Pt had nl B12/folate, LFT's , Calcium,T.prot/albumin / CPK / HCG.CXR neg. Pt Rx w Prednisone , nebs, feeling somewhat better . She reports abnormal menstrual cycles over past year , w 2-3 months without menses , but then has heavy 10-15 day bleeding . She has occ lower abdominal cramps cramps . She also reports easy bruising X 3 months , linette legs ; she denies epistaxis/gingival bleeding/melena/BRBPR/hematuria/ hemoptysis. Pt is , 1 ab 1 miscarriage ( mole 2-3 yrs ago).She reports a 35 lb weight loss over 6 months but appetite OK ; mild fatigue . Cuurrently she has mild vaginal bleeding on and off since 12-16. Pt still w SOB/wheezing ; lightheadedness ; Hgb down to 6.6; still w mild vaginal bleeding. - Current Medication List Current Medications: Active Medications Acetaminophen/Butalbital/Caffeine (Fioricet -) 1 tablet PO Q6H PRN PRN Reason: HEADACHE Albuterol/Ipratropium (Duoneb -) 1 amp NEB RQID [facility] Last Admin: 12/20/17 07:49 Dose: 1 amp Ferrous Sulfate (Feosol -) 325 mg PO TIDCM [facility] Last Admin: 12/20/17 09:02 Dose: 325 mg Sodium Chloride (Normal Saline -) 1,000 mls @ 100 mls/hr IV ASDIR [facility] Last Admin: 12/20/17 09:03 Dose: 100 mls/hr Prednisone (Deltasone -) 40 mg PO DAILY [facility] Stop: 12/24/17 09:59 Last Admin: 12/20/17 09:03 Dose: 40 mg Ranitidine HCl (Zantac -) 150 mg PO BID [facility] Last Admin: 12/20/17 09:02 Dose: 150 mg - Objective Vital Signs: Vital Signs Temperature 98.1 F 12/20/17 07:30 Pulse Rate 64 12/20/17 07:30 Respiratory Rate 20 12/20/17 07:30 Blood Pressure 110/68 12/20/17 07:30 O2 Sat by Pulse Oximetry (%) 97 12/19/17 21:00 Constitutional: Yes: Well Nourished, No Distress, Anxious Eyes: Yes: WNL, Conjunctiva Clear, EOM Intact HENT: Yes: WNL, Atraumatic, Normocephalic Neck: Yes: Supple, Trachea Midline Cardiovascular: Yes: WNL, Regular Rate and Rhythm Respiratory: Yes: Diminished, Wheezes Gastrointestinal: Yes: WNL, Normal Bowel Sounds, Soft Musculoskeletal: Yes: WNL Extremities: Yes: WNL Edema: No Integumentary: Yes: Bruising (E hip bruise noted now , reportedly from a previous fall (slip)prior to admission, no pain) Labs: CBC, BMP 12/20/17 06:15 12/19/17 09:05 Problem List - Problems (1) Anemia Code(s): D64.9 - ANEMIA, UNSPECIFIED (2) Dizziness Code(s): R42 - DIZZINESS AND GIDDINESS (3) Weakness Code(s): R53.1 - WEAKNESS Assessment/Plan Pt w microcytic hypoproliferative anemia , low ferritin, low retic , nl LDH and thyroid profile ; Likely all due to uterine bleeding and iron def . 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 ; keep on oral iron 325mg BID ; Can also consider GI eval if no other explanation found for weight loss
--- NOTE | 2017-12-20 11:47 | CON.PULM ---
Consult Consult Specialty:: PULM/CCM Referred by:: WILLIAM Reason for Consultation:: Asthma - History of Present Illness Chief Complaint: SOB History of Present Illness: 42 F, PMH asthma (never intubated, unknown PEF, not steroid dependent), anemia and AVM. Admitted via the ER due to SOB, non-productive cough, and chest tightness for one day duration. She was noted to have significant anemia which she attributes to her IUD. No travel history or sick contacts. No fever or chills. No hemoptysis. 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 (hx AVM causing R eye blindness ) Cardio/Vascular: No: AFIB, Aneurysm, Aortic Insufficiency, Aortic Stenosis, CAD , CHF, Deep Vein Thrombosis, HTN, Hyperlipdemia, MD, Mitral Insufficiency, Mitral Stenosis, Murmur, Pulmonary Hypertension, Other Pulmonary: Yes: Asthma Gastrointestinal: No: Ascites, Cancer, Constipation, Crohn's Disease, Diverticulitis, Diverticulosis, Esophageal Varices, Gastritis, GERD, GI Bleed, Hemorrhoids, Hiatal Hernia, Inflamatory Bowel Disease, Irritable Bowel Disease, Pancreatitis, Peptic Ulcer Disease, Ulcerative Colitis, Other Hepatobiliary: No: Cirrhosis, Cholelithiasis, Cholecystitis, Choledocholithiasis , Hepatitis A, Hepatitis B, Hepatitis C, Other ...LMP: 12/16/17 Infectious Disease: No: AIDS, C-Diff, Herpes Zoster, HIV, MRSA, STD's, Tuberculosis, VREF, Other Psych: No: Addictions, Anxiety, Bipolar, Depression, Panic, Psychosis, Schizophrenia, Other Musculoskeletal: No: Bursitis, Chronic low back pain, Hemiparesis, Hemiplegia, Osteoarthritis, Paraplegia, Other Rheumatology: No: Fibromyalgia, Gout, Lupus, Rheumatoid Arthritis, Sarcoidosis, Vasculitis, Other Endocrine: No: Alexis's Disease, Boston's Disease, Diabetes Insipidus, Diabetes Mellitus, Hyperparathyroidism, Hyperthyroidism, Hypothyroidism, Osteopenia, SIADH, Other Dermatology: No: Basal Cell, Cellulitis, Eczema, Melanoma, Psoriasis, Squamous Cell, Other - Past Surgical History Past Surgical History: No: None, AAA Repair, AICD, Amputation, Appendectomy, Arthrosocopy, AV Fistula/Graft, Bariatric Surgery, Breast Biopsy, Bypass, CABG, Carotid Endarterectomy, Cataract Removal, Cholecystectomy, Colectomy, Colonoscopy, Colostomy, Craniotomy, , Cystectomy, Hernia Repair, Hysterectomy, Ileal Conduit, Ileosotomy, Joint Replacement, Kidney Transplant, Laminectomy, Liver Transplant, Mastectomy, Nephrectomy, Oopherectomy, Orchiectomy, Permanent Pacemaker, Prostatectomy, Splenectomy, Stent, Thoracotomy , TURP, Tonsillectomy, Tubal Ligation, Upper Endoscopy, Valve Replacement, Vasectomy, Vein Stripping/Ligation - Alcohol/Substance Use Hx Alcohol Use: Yes (in past , over 17 yrs ago) History of Substance Use: reports: Heroin - Smoking History Smoking history: Never smoked Have you smoked in the past 12 months: No Aproximately how many cigarettes per day: 0 Home Medications - Allergies Allergies/Adverse Reactions: Allergies Allergy/AdvReac Type Severity Reaction Status Date / Time No Known Allergies Allergy Verified 10/15/14 18:54 - Home Medications Home Medications: Ambulatory Orders Albuterol Sulfate Inhaler - [Ventolin Hfa Inhaler -] 2 inh PO Q4H 12/19/17 Family Disease History - Family Disease History Family Disease History: Heart Disease: Mother (CVA) Other Family History: 3 siblings -WNL ; hx anemia in several cousins/grandmother Review of Systems - Review of Systems Constitutional: reports: Lethargy, Malaise. denies: Chills, Fever, Night Sweats , Unintentional Wgt. Loss Eyes: reports: No Symptoms HENT: reports: No Symptoms Neck: reports: No Symptoms Cardiovascular: reports: Chest Pain, Shortness of Breath. denies: Edema, Palpitations Respiratory: reports: Cough, SOB, SOB on Exertion, Wheezing. denies: Hemoptysis , Snoring Gastrointestinal: reports: No Symptoms Genitourinary: reports: No Symptoms Breasts: reports: No Symptoms Reported Musculoskeletal: reports: No Symptoms Integumentary: reports: No Symptoms Neurological: reports: No Symptoms Endocrine: reports: No Symptoms Hematology/Lymphatic: reports: Excessive Bleeding Psychiatric: reports: No Symptoms Physical Exam Vital Sings: Vital Signs Temperature 98.1 F 12/20/17 07:30 Pulse Rate 64 12/20/17 07:30 Respiratory Rate 20 12/20/17 07:30 Blood Pressure 110/68 12/20/17 07:30 O2 Sat by Pulse Oximetry (%) 97 12/19/17 21:00 Constitutional: Yes: No Distress, Calm Eyes: Yes: Conjunctiva Clear, EOM Intact HENT: Yes: Atraumatic, Normocephalic Neck: Yes: Supple, Trachea Midline Cardiovascular: Yes: Regular Rate and Rhythm Respiratory: Yes: CTA Bilaterally. No: Accessory Muscle Use, Rales, Rhonchi, Stridor, Tachypnea, Wheezes ...Inspection: Yes: WNL ...Clubbing: No Gastrointestinal: Yes: Normal Bowel Sounds, Soft Renal/: Yes: WNL Musculoskeletal: Yes: WNL Extremities: Yes: WNL Edema: No Peripheral Pulses WNL: Yes Integumentary: Yes: WNL Neurological: Yes: WNL, Alert, Oriented ...Motor Strength: WNL Psychiatric: Yes: WNL, Alert, Oriented Labs: CBC, BMP 12/20/17 06:15 12/19/17 09:05 Imaging - Results Chest X-ray: Report Reviewed, Image Reviewed Problem List - Problems (1) Asthma Code(s): J45.909 - UNSPECIFIED ASTHMA, UNCOMPLICATED (2) Anemia Code(s): D64.9 - ANEMIA, UNSPECIFIED (3) Cough Code(s): R05 - COUGH Assessment/Plan Symptoms likely due to significant anemia Short course of Prednisone BD TX No smoking Heme consult for anemia noted No smoking PEF monitoring Monitor off ABX Dr Busch
[2017-12-21] MEDS ORDERED: IRON SUCROSE INJECTION 200 MG in SODIUM CHLORIDE 90 ML IVPB ONE (08:00)
[2017-12-21 08:10] LABS: SERUM IRON SATURATION 31 % (15-55); TOTAL IRON BINDING CAPACITY 387 ug/dL (250-450); UIBC 268 ug/dL (131-425)
[2017-12-21] MEDS: FERROUS SO4 325 MG TABLET (FP) PO SCH ×3 (08:15→17:12)
[2017-12-21] MEDS: ALBUTEROL SO4 2.5/IPRATROPIUM 0.5 INH SOL 3 ML VIAL.NEB. NEB SCH ×4 (08:24→20:27)
[2017-12-21] MEDS ORDERED: PT OWN MED DRAWER 7, Y5N ONE (09:10)
[2017-12-21] MEDS: predniSONE 20 MG TABLET (UD) PO SCH (09:12)
[2017-12-21] MEDS: RANITIDINE HCL 150 MG TABLET (FP) PO SCH (09:12)
[2017-12-21] MEDS: SODIUM CHLORIDE 1,000 ML IV SCH (09:12)
[2017-12-21 09:48] LABS: BASO % 0.8 % (0-2.0); EOS % 0.2 % (0-4.5); HEMATOCRIT 28.9 % (32.4-45.2); LYMPH % 42.5 % (8-40); MCHC 31.1 g/dl (32.0-36.0); MEAN CELL VOLUME 61.6 fl (80-96); MEAN PLT VOLUME 9.1 fl (7.5-11.1); MONO % 8.8 % (3.8-10.2); NEUT % 47.7 % (42.8-82.8); PLATELET COUNT 205 K/MM3 (134-434); RBC 4.69 M/mm3 (3.60-5.2); RDW 25.7 % (11.6-15.6); WHITE BLOOD COUNT 8.3 K/mm3 (4.0-10.0)
[2017-12-21 09:49] LABS: MCH 19.2 pg (25.7-33.7)
[2017-12-21 10:09] LABS: ALBUMIN 3.6 g/dl (3.4-5.0); ANION GAP 7 (8-16); BLOOD UREA NITROGEN 13 mg/dL (7-18); CALCIUM 8.5 mg/dL (8.5-10.1); CHLORIDE 107 mmol/L (98-107); CO2 26 mmol/L (21-32); CREATININE 0.6 mg/dL (0.55-1.02); GLUCOSE,RANDOM 95 mg/dL (74-106); POTASSIUM 3.9 mmol/L (3.5-5.1); SGOT/AST 12 U/L (15-37); SGPT/ALT 25 U/L (12-78); SODIUM 140 mmol/L (136-145)
[2017-12-21 10:10] LABS: ALK PHOS 52 U/L (45-117); BILIRUBIN,TOTAL 0.2 mg/dL (0.2-1.0); TOT PROT 6.9 g/dl (6.4-8.2)
--- NOTE | 2017-12-21 16:04 | PN ---
Progress Note, Physician History of Present Illness: pulmonary alert,c/o cough,wheezing,sob improving - Current Medication List Current Medications: Active Medications Acetaminophen/Butalbital/Caffeine (Fioricet -) 1 tablet PO Q6H PRN PRN Reason: HEADACHE Last Admin: 12/21/17 10:19 Dose: 1 tablet Albuterol/Ipratropium (Duoneb -) 1 amp NEB RQID [facility] Last Admin: 12/21/17 11:06 Dose: 1 amp Ferrous Sulfate (Feosol -) 325 mg PO TIDCM [facility] Last Admin: 12/21/17 12:45 Dose: 325 mg Prednisone (Deltasone -) 40 mg PO DAILY [facility] Stop: 12/24/17 09:59 Last Admin: 12/21/17 09:12 Dose: 40 mg Ranitidine HCl (Zantac -) 150 mg PO BID [facility] Last Admin: 12/21/17 09:12 Dose: 150 mg - Objective Vital Signs: Vital Signs Temperature 98.6 F 12/21/17 15:20 Pulse Rate 70 12/21/17 15:20 Respiratory Rate 18 12/21/17 15:20 Blood Pressure 99/70 12/21/17 15:20 O2 Sat by Pulse Oximetry (%) 97 12/21/17 09:00 Constitutional: Yes: Well Nourished, Calm Eyes: Yes: WNL HENT: Yes: WNL Neck: Yes: WNL Cardiovascular: Yes: Regular Rate and Rhythm, S1, S2 Respiratory: Yes: Wheezes (scattered mike wheezes) Gastrointestinal: Yes: Normal Bowel Sounds, Soft Extremities: Yes: WNL Edema: No Labs: CBC, BMP 12/21/17 09:05 12/21/17 09:05 Assessment/Plan Problem List - Problems (1) Asthma Code(s): J45.909 - UNSPECIFIED ASTHMA, UNCOMPLICATED (2) Anemia Code(s): D64.9 - ANEMIA, UNSPECIFIED (3) Cough Code(s): R05 - COUGH Assessment/Plan Short course steroids BD TX No smoking MONITOR H+H PEF monitoring DR LANG
--- NOTE | 2017-12-21 16:27 | PN ---
Physical Exam: SUBJECTIVE: Patient seen and examined. Pt reports dizziness and wondering why her breathing isn't better. Denies fever, chills, [place]. OBJECTIVE: Vital Signs Period Temp Pulse Resp BP Sys/Persaud Pulse Ox Last 24 Hr 98.1 F-98.6 F 56-75 18-20 99-110/56-70 97-97 PE Neuro: alert, awake, cn 2-12intact Pulm: + cough, scattered rhonchi CV: s1 s2 rrr no mrg Abd: s nt nd + bs Ext: no le edema, warm Laboratory Results - last 24 hr 12/20/17 12/20/17 12/20/17 06:15 06:15 19:40 WBC RBC Hgb Hct MCV MCH MCHC RDW Plt Count MPV Neutrophils % Lymphocytes % Monocytes % Eosinophils % Basophils % Sodium Potassium Chloride Carbon Dioxide Anion Gap BUN Creatinine Creat Clearance w eGFR Random Glucose Hemoglobin A1c % 6.9 H Calcium Iron 119 TIBC 387 Iron Saturation 31 Total Bilirubin AST ALT Alkaline Phosphatase Total Protein Albumin Total T3 78.00 12/21/17 12/21/17 09:05 09:05 WBC 8.3 RBC 4.69 D Hgb 9.0 L D Hct 28.9 L D MCV 61.6 L D MCH 19.2 L MCHC 31.1 L RDW 25.7 H Plt Count 205 MPV 9.1 Neutrophils % 47.7 Lymphocytes % 42.5 H D Monocytes % 8.8 Eosinophils % 0.2 Basophils % 0.8 Sodium 140 Potassium 3.9 Chloride 107 Carbon Dioxide 26 Anion Gap 7 L BUN 13 Creatinine 0.6 Creat Clearance w eGFR > 60 Random Glucose 95 Hemoglobin A1c % Calcium 8.5 Iron TIBC Iron Saturation Total Bilirubin 0.2 AST 12 L ALT 25 Alkaline Phosphatase 52 Total Protein 6.9 Albumin 3.6 Total T3 Active Medications Generic Name Dose Route Start Last Admin Trade Name Freq PRN Reason Stop Dose Admin Acetaminophen/Butalbital/Caffeine 1 tablet 12/19/17 22:15 12/21/17 10:19 Fioricet - PO 1 tablet Q6H PRN Administration HEADACHE Albuterol/Ipratropium 1 amp 12/19/17 16:00 12/21/17 11:06 Duoneb - NEB 1 amp RQID DEBRA Administration Ferrous Sulfate 325 mg 12/19/17 08:00 12/21/17 12:45 Feosol - PO 325 mg TIDCM DEBRA Administration Methylprednisolone Sodium Succinate 40 mg 12/21/17 18:00 Solu-Medrol - IVPUSH Q8H-IV EDBRA Ranitidine HCl 150 mg 12/19/17 22:00 12/21/17 09:12 Zantac - PO 150 mg BID DEBRA Administration Assessment: 42 year old female with a significant past medical history of asthma , former ETOH/drug abuse, anemia and anteriovenous malformation with chronic headaches admitted with shortness of breath, non productive cough, chest tightness and symptoms of dizziness with ambulation. Plan: 1. Asthma exacerbation - Change to medrol 40mg q8hr IVP - Duonebs 2. 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 Weight loss - CTAP for r/o malignancy 4. AV malformation with chronic headaches - Head CT negative - Consider neuro consult outpatient 5. DM II - Hgb a1c 6.9 - Diet modification vs po antidiabetics - Can d/w PCP on discharge Visit type - Emergency Visit Emergency Visit: Yes ED Registration Date: 12/19/17 Care time: The patient presented to the Emergency Department on the above date and was hospitalized for further evaluation of their emergent condition. - New Patient This patient is new to me today: Yes Date on this admission: 12/21/17 - Critical Care Critical Care patient: No
[2017-12-21] MEDS: methylPREDNISolone NA SUCC 40 MG/1 ML VIAL IVPUSH SCH (17:08)
[2017-12-22] MEDS: methylPREDNISolone NA SUCC 40 MG/1 ML VIAL IVPUSH SCH ×3 (01:34→17:56)
[2017-12-22] MEDS: ALBUTEROL SO4 2.5/IPRATROPIUM 0.5 INH SOL 3 ML VIAL.NEB. NEB SCH ×4 (07:50→20:30)
[2017-12-22] MEDS: PANTOPRAZOLE 40 MG TABLET (FP) PO SCH (11:37)
[2017-12-22] MEDS: FERROUS SO4 325 MG TABLET (FP) PO SCH ×3 (11:37→17:56)
--- NOTE | 2017-12-22 12:39 | PN ---
Physical Exam: SUBJECTIVE: Patient seen and examined. She says her breathing is the same. She coughs so hard she loses her breath and has pain and becomes dizzy. She says its a different sob then her asthma OBJECTIVE: Vital Signs Period Temp Pulse Resp BP Sys/Persaud Pulse Ox Last 24 Hr 97.7 F-98.9 F 63-79 18-20 99-117/60-70 97 PE Neuro: alert, awake, cn 2-12intact Pulm: ctab, + cough, CV: s1 s2 rrr no mrg Abd: s nt nd + bs Ext: no le edema, warm Active Medications Generic Name Dose Route Start Last Admin Trade Name Freq PRN Reason Stop Dose Admin Acetaminophen/Butalbital/Caffeine 1 tablet 12/19/17 22:15 12/21/17 10:19 Fioricet - PO 1 tablet Q6H PRN Administration HEADACHE Albuterol/Ipratropium 1 amp 12/19/17 16:00 12/22/17 12:00 Duoneb - NEB 1 amp RQID DEBRA Administration Ferrous Sulfate 325 mg 12/19/17 08:00 12/22/17 11:37 Feosol - PO 325 mg TIDCM DEBRA Administration Methylprednisolone Sodium Succinate 40 mg 12/21/17 18:00 12/22/17 11:37 Solu-Medrol - IVPUSH 40 mg Q8H-IV DEBRA Administration Pantoprazole Sodium 40 mg 12/22/17 10:00 12/22/17 11:37 Protonix - PO 40 mg DAILY DEBRA Administration Assessment: 42 year old female with a significant past medical history of asthma , former ETOH/drug abuse, anemia and anteriovenous malformation with chronic headaches admitted with shortness of breath, non productive cough, chest tightness and symptoms of dizziness with ambulation. Plan: 1. Asthma exacerbation, persistent cough - Taper medrol 40mg BID IVP - Start muscinex BID - Start claritin - Duonebs 2. 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 Weight loss - CTAP negative - DR. Cedillo seeing 4. AV malformation with chronic headaches - Head CT negative - Consider neuro consult outpatient 5. DM II - Hgb a1c 6.9 - Diet modification vs po antidiabetics - Can d/w PCP on discharge Visit type - Emergency Visit Emergency Visit: Yes ED Registration Date: 12/19/17 Care time: The patient presented to the Emergency Department on the above date and was hospitalized for further evaluation of their emergent condition. - New Patient This patient is new to me today: No - Critical Care Critical Care patient: No
[2017-12-22 13:18] LABS: BASO % 0.3 % (0-2.0); HEMATOCRIT 30.7 % (32.4-45.2); HEMOGLOBIN 9.6 GM/dL (10.7-15.3); LYMPH % 10.2 % (8-40); MCHC 31.2 g/dl (32.0-36.0); MEAN CELL VOLUME 62.4 fl (80-96); MONO % 4.1 % (3.8-10.2); NEUT % 85.4 % (42.8-82.8); PLATELET COUNT 244 K/MM3 (134-434); RBC 4.92 M/mm3 (3.60-5.2); RDW 26.2 % (11.6-15.6); WHITE BLOOD COUNT 14.9 K/mm3 (4.0-10.0)
[2017-12-22 13:33] LABS: MCH 19.5 pg (25.7-33.7)
[2017-12-22 14:18] LABS: HGB SOLUBILITY Negative (Negative); Hgb A 98.5 % (96.4-98.8); Hgb C 0 % (0.0); Hgb F 0 % (0.0-2.0); Hgb S 0 % (0.0)
--- NOTE | 2017-12-22 15:17 | PATH ---
Surgical Pathology Report Patient Name: MAGDA WATSON [facility]. Rec. #: [id number] /Age/Gender: 1975 (Age: 42) / F Account: [id number] Location: [facility] Taken: 12/20/2017 Received: 12/20/2017 Reported: 12/22/2017 Physicians: Enrike Cedillo MD Specimen(s) Received A: BONE MARROW BIOPSY B: BONE MARROW ASPIRATION SMEARS 3 SLIDES C: BONE MARROW BLOOD 2 GREEN 1 LAVENDER TOPS Clinical History Microcytic anemia, 15 year history of anemia, presumably iron deficiency and bleeding (uterine), on and off iron, now with shortness, hemoglobin 8-6.6, ferritin low. LDH/B12/folate/thyroid normal. Low reticulocyte count. Rule out MDS Final Diagnosis BONE MARROW, ASPIRATE AND CLOT: OVERALL NORMOCELLULAR MARROW WITH TRILINEAGE MATURATION. NO OVERT DYSPLASTIC FEATURES IDENTIFIED. NO INCREASE IN BLASTS IDENTIFIED. NO STAINABLE IRON IDENTIFIED. Comment: Review of the aspirate smears shows show particles of overall normocellular bone marrow. A differential count reveals 1% blasts, 51% myeloid cells, 16% lymphocytes, 32% erythroid precursors. No overt dysplastic features are identified. An iron stain on an aspirate film shows multiple particles of bone marrow with no stainable iron identified. The clot sections show a single particle of overall normocellular bone marrow. Iron stain does not reveal stainable iron. Trichrome stain shows no increased fibrosis. Flow cytometry performed and interpreted at [facility], [place], [place] ([id number]) shows the following: INTERPRETATION: In the sample analyzed, there is no evidence for abnormal myeloid maturation or an increased blast population. There is no evidence for a lymphoproliferative disorder. Hematologic FISH Report performed and interpreted at [facility] in [place], [place] ([id number]) shows the following. INTERPRETATION: No evidence of deletion 5q or monosomy 5 is present. No evidence of deletion 7q or monosomy 7 is present. No evidence of trisomy 8 (+8) is present. No evidence of deletion 13q14 is present. No evidence of a rearrangement of 11q23. No evidence of a deletion of the p53 (17p13) locus. No evidence of deletion 20q12 is present. Comments: Correlation with pending cytogenetics ([id number]) is recommended. Electronically Signed Tobias Rueda M.D. Addendum Reported: 12/30/2017 Addendum Diagnosis CYTOGENETIC KARYOTYPE ANALYSIS performed and interpreted at [place], [place] ([id number]) TEST RESULTS: 46, XX [20] DIAGNOSTIC INTERPRETATION: Normal Karyotype Within the limits of the cytogenetics methods, the chromosome had normal G-banding patterns with no evidence of an acquired clonal numerical or structural abnormality. This normal result does not rule out neoplasm. Subtle rearrangements or the presence of an aberrant clone in a low proportion of cells cannot be ruled out. Correlation with other clinical and hematologic data is suggested. Analysis was performed on cells from unstimulated tissue cultures. Krista Pink M.D. Gross Description A. Received in formalin, labeled with the patient's name and indicated on the requisition to be bone marrow biopsy, is a 1.2 x 1.0 x 0.2 cm aggregate of red-brown blood clot. No definite bone is identified. The specimen is entirely submitted in one cassette. B. Received are 3 bone marrow aspiration smear slides C. Received are 2 green top tubes and 1 lavender top tube of bone marrow blood which is sent to [facility]. /12/20/2017 saudi12/20/2017
[2017-12-22] MEDS: guaiFENesin/D-METHORPHAN HB 1 EACH TAB.ER.12H PO SCH ×2 (15:24→21:07)
[2017-12-22] MEDS: LORATADINE 10 MG TABLET PO SCH (15:25)
[2017-12-22] MEDS ORDERED: PT OWN MED DRAWER 7, Y5N ONE ×2 (15:28→20:32)
--- NOTE | 2017-12-22 17:30 | CON.GI ---
Consult Consult Specialty:: GI Reason for Consultation:: anemia, wt loss - History of Present Illness History of Present Illness: A 42F with symptomatic anemia and asthma exaserbation. Hx of irregular menses with prolonged heavy bleeding. No prior hx of blood transfusions. No overt GI issues. Unintentional 35 lb wt loss/6 moths. Denies fever, chills, nausea, vomiting, hematemesis, dysphagia, odynophagia, jaundice, abdominal pain, altered bowels, pencil-thin, or ribbon-like stools. Denies melena, cassandra hematochezia. Ongoing minimal vaginal bledeing x 5 days. Never had anemia GI work up. 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: Other (hx AVM causing R eye blindness ) Cardio/Vascular: No: AFIB, Aneurysm, Aortic Insufficiency, Aortic Stenosis, CAD , CHF, Deep Vein Thrombosis, HTN, Hyperlipdemia, [place], Mitral Insufficiency, Mitral Stenosis, Murmur, Pulmonary Hypertension, Other Pulmonary: Yes: Asthma Gastrointestinal: No: Ascites, Cancer, Constipation, Crohn's Disease, Diverticulitis, Diverticulosis, Esophageal Varices, Gastritis, GERD, GI Bleed, Hemorrhoids, Hiatal Hernia, Inflamatory Bowel Disease, Irritable Bowel Disease, Pancreatitis, Peptic Ulcer Disease, Ulcerative Colitis, Other Hepatobiliary: No: Cirrhosis, Cholelithiasis, Cholecystitis, Choledocholithiasis , Hepatitis A, Hepatitis B, Hepatitis C, Other ...LMP: 12/16/17 Infectious Disease: No: AIDS, C-Diff, Herpes Zoster, HIV, MRSA, STD's, Tuberculosis, VREF, Other Psych: No: Addictions, Anxiety, Bipolar, Depression, Panic, Psychosis, Schizophrenia, Other Musculoskeletal: No: Bursitis, Chronic low back pain, Hemiparesis, Hemiplegia, Osteoarthritis, Paraplegia, Other Rheumatology: No: Fibromyalgia, Gout, Lupus, Rheumatoid Arthritis, Sarcoidosis, Vasculitis, Other Endocrine: No: Alexis's Disease, Jeffrey's Disease, Diabetes Insipidus, Diabetes Mellitus, Hyperparathyroidism, Hyperthyroidism, Hypothyroidism, Osteopenia, SIADH, Other Dermatology: No: Basal Cell, Cellulitis, Eczema, Melanoma, Psoriasis, Squamous Cell, Other - Past Surgical History Past Surgical History: No: None, AAA Repair, AICD, Amputation, Appendectomy, Arthrosocopy, AV Fistula/Graft, Bariatric Surgery, Breast Biopsy, Bypass, CABG, Carotid Endarterectomy, Cataract Removal, Cholecystectomy, Colectomy, Colonoscopy, Colostomy, Craniotomy, , Cystectomy, Hernia Repair, Hysterectomy, Ileal Conduit, Ileosotomy, Joint Replacement, Kidney Transplant, Laminectomy, Liver Transplant, Mastectomy, Nephrectomy, Oopherectomy, Orchiectomy, Permanent Pacemaker, Prostatectomy, Splenectomy, Stent, Thoracotomy , TURP, Tonsillectomy, Tubal Ligation, Upper Endoscopy, Valve Replacement, Vasectomy, Vein Stripping/Ligation - Alcohol/Substance Use Hx Alcohol Use: Yes (in past , over 17 yrs ago) History of Substance Use: reports: Heroin - Smoking History Smoking history: Never smoked Have you smoked in the past 12 months: No Aproximately how many cigarettes per day: 0 Home Medications - Allergies Allergies/Adverse Reactions: Allergies Allergy/AdvReac Type Severity Reaction Status Date / Time No Known Allergies Allergy Verified 10/15/14 18:54 - Home Medications Home Medications: Ambulatory Orders Albuterol Sulfate Inhaler - [Ventolin Hfa Inhaler -] 2 inh PO Q4H 12/19/17 Family Disease History - Family Disease History Family Disease History: Heart Disease: Mother (CVA) Other Family History: 3 siblings -WNL ; hx anemia in several cousins/grandmother Review of Systems Findings/Remarks: as per HPI, H&P Physical Exam-GI Vital Signs: Vital Signs Temperature 98.1 F 12/22/17 15:45 Pulse Rate 77 12/22/17 15:45 Respiratory Rate 22 12/22/17 15:45 Blood Pressure 115/62 12/22/17 15:45 O2 Sat by Pulse Oximetry (%) 95 12/22/17 09:00 Constitutional: Yes: Well Nourished, No Distress, Calm Eyes: Yes: Conjunctiva Clear HENT: Yes: Atraumatic Neck: Yes: Supple Cardiovascular: Yes: Regular Rate and Rhythm Respiratory: Yes: Regular Gastrointestinal Inspection: No: Ascites, Distention ...Auscultate: Yes: Normoactive Bowel Sounds ...Palpate: Yes: Soft. No: Firm/Rigid, Guarding, Mass, Tenderness ...Rectal Exam: Yes: Deferred (CARMELLA will not change the management) Integumentary: No: Jaundice Neurological: Yes: Alert, Oriented Labs: CBC, BMP 12/22/17 13:00 12/21/17 09:05 Laboratory Last Values WBC 14.9 K/mm3 (4.0-10.0) H D 12/22/17 13:00 RBC 4.92 M/mm3 (3.60-5.2) 12/22/17 13:00 Hgb 9.6 GM/dL (10.7-15.3) L 12/22/17 13:00 Hct 30.7 % (32.4-45.2) L 12/22/17 13:00 MCV 62.4 fl (80-96) L 12/22/17 13:00 MCH 19.5 pg (25.7-33.7) L 12/22/17 13:00 MCHC 31.2 g/dl (32.0-36.0) L 12/22/17 13:00 RDW 26.2 % (11.6-15.6) H 12/22/17 13:00 Plt Count 244 K/MM3 (134-434) 12/22/17 13:00 MPV 9.0 fl (7.5-11.1) 12/22/17 13:00 Neutrophils % 85.4 % (42.8-82.8) H D 12/22/17 13:00 Lymphocytes % 10.2 % (8-40) D 12/22/17 13:00 Monocytes % 4.1 % (3.8-10.2) 12/22/17 13:00 Eosinophils % 0.0 % (0-4.5) D 12/22/17 13:00 Basophils % 0.3 % (0-2.0) 12/22/17 13:00 Hypochromia 3+ 12/19/17 02:20 Anisocytosis 2+ 12/19/17 02:20 Microcytosis 3+ 12/19/17 02:20 Retic Count 1.38 % (0.5-1.5) 12/20/17 06:15 Hemoglobin A 98.5 % (96.4-98.8) 12/20/17 06:15 Hemoglobin A2 1.5 % (1.8-3.2) L 12/20/17 06:15 Hemoglobin C 0 % (0.0) 12/20/17 06:15 Hemoglobin S 0 % (0.0) 12/20/17 06:15 Variant Hemoglobin TNP 12/20/17 06:15 Hemoglobin Interpret (.) 12/20/17 06:15 Maternal Rh 0 % (0.0-2.0) 12/20/17 06:15 Hemoglobin Solubility Negative (Negative) 12/20/17 06:15 PTT (Actin FS) 24.4 SECONDS (26.9-34.4) L 12/20/17 06:15 Sodium 140 mmol/L (136-145) 12/21/17 09:05 Potassium 3.9 mmol/L (3.5-5.1) 12/21/17 09:05 Chloride 107 mmol/L (98-107) 12/21/17 09:05 Carbon Dioxide 26 mmol/L (21-32) 12/21/17 09:05 Anion Gap 7 (8-16) L 12/21/17 09:05 BUN 13 mg/dL (7-18) 12/21/17 09:05 Creatinine 0.6 mg/dL (0.55-1.02) 12/21/17 09:05 Creat Clearance w eGFR > 60 (>60) 12/21/17 09:05 Random Glucose 95 mg/dL (74-106) 12/21/17 09:05 Hemoglobin A1c % 6.9 % (4.8-6.0) H 12/20/17 19:40 Calcium 8.5 mg/dL (8.5-10.1) 12/21/17 09:05 Phosphorus 3.1 mg/dL (2.5-4.9) 12/19/17 09:05 Magnesium 2.5 mg/dL (1.8-2.4) H 12/19/17 09:05 Iron 119 ug/dL (27-159) 12/20/17 06:15 TIBC 387 ug/dL (250-450) 12/20/17 06:15 Iron Saturation 31 % (15-55) 12/20/17 06:15 Transferrin 406 mg/dL (200-370) H 12/19/17 09:05 Ferritin 4.581 ng/ml (6.9-282.5) L 12/20/17 06:15 Total Bilirubin 0.2 mg/dL (0.2-1.0) 12/21/17 09:05 AST 12 U/L (15-37) L 12/21/17 09:05 ALT 25 U/L (12-78) 12/21/17 09:05 Alkaline Phosphatase 52 U/L (45-117) 12/21/17 09:05 LD Total 132 U/L (84-246) 12/20/17 06:15 Creatine Kinase 146 IU/L (26-192) 12/19/17 02:20 Troponin I 0.03 ng/ml (0.00-0.05) 12/19/17 18:40 Total Protein 6.9 g/dl (6.4-8.2) 12/21/17 09:05 Albumin 3.6 g/dl (3.4-5.0) 12/21/17 09:05 Vitamin B12 312014 pg/ml (180-914) H 12/19/17 09:05 Serum Folate 23 ng/ml (3.1-17.5) H 12/19/17 09:05 TSH 0.59 uIU/ml (0.358-3.74) 12/20/17 06:15 Free T4 0.95 ng/dl (0.76-1.46) 12/20/17 06:15 Total T3 78.00 ng/dl (71-180) 12/20/17 06:15 Urine HCG, Qual Negative 12/20/17 09:30 Blood Type O POSITIVE 12/19/17 09:05 Antibody Screen Negative 12/19/17 09:05 Crossmatch See Detail 12/19/17 09:05 Imaging - Results Cat Scan: Report Reviewed (w/o 6 mm cbd) Problem List - Problems (1) Iron deficiency anemia due to chronic blood loss Code(s): D50.0 - IRON DEFICIENCY ANEMIA SECONDARY TO BLOOD LOSS (CHRONIC) Assessment/Plan 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 Plan EGD and colonoscopy to r/o GI source. Also, 35 lb/6 mo wt loss. Discussed with the patient.
[2017-12-22] MEDS ORDERED: BISACODYL 5 MG TABLET.DR (FP) PO ONE (17:45)
[2017-12-22] MEDS ORDERED: PEG 3350/NA SULF BICARB CL/KCL 4000 ML SOLN.RECON PO ONE (17:45)
[2017-12-23] MEDS: methylPREDNISolone NA SUCC 40 MG/1 ML VIAL IVPUSH SCH ×3 (01:17→17:35)
[2017-12-23] MEDS: FERROUS SO4 325 MG TABLET (FP) PO SCH ×3 (07:33→17:35)
[2017-12-23] MEDS: ALBUTEROL SO4 2.5/IPRATROPIUM 0.5 INH SOL 3 ML VIAL.NEB. NEB SCH ×4 (07:41→21:00)
[2017-12-23 08:49] LABS: ANION GAP 9 (8-16); BLOOD UREA NITROGEN 15 mg/dL (7-18); CALCIUM 9.2 mg/dL (8.5-10.1); CHLORIDE 105 mmol/L (98-107); CO2 26 mmol/L (21-32); CREATININE 0.5 mg/dL (0.55-1.02); GLUCOSE,RANDOM 112 mg/dL (74-106); POTASSIUM 4.2 mmol/L (3.5-5.1); SODIUM 140 mmol/L (136-145)
[2017-12-23] MEDS: LORATADINE 10 MG TABLET PO SCH (09:44)
[2017-12-23] MEDS: PANTOPRAZOLE 40 MG TABLET (FP) PO SCH (09:44)
[2017-12-23] MEDS: guaiFENesin/D-METHORPHAN HB 1 EACH TAB.ER.12H PO SCH ×2 (09:44→21:36)
--- NOTE | 2017-12-23 09:48 | PN ---
Progress Note, Physician Chief Complaint: fatigue/SOB/cough History of Present Illness: 42 y/o H Female with a Hx of anemia X 15 years (started after IUD placed - removed 10 years later ) , presumably from heavy menses and iron deficiency , Rx w oral iron supp on and off , but not in last 5-6 years ; pt reports she never had blood Tx ; she was admitted for increased SOB X 1 day not responding to inhaler. In ER , H/H was low at 8/26 w MCV 57 , plates 242K and WBC 9.7 w unremarkable diff ; 3+ microcytes and hypochromia . Pt had nl B12/folate, LFT's , Calcium,T.prot/albumin / CPK / HCG.CXR neg. Pt Rx w Prednisone , nebs, feeling somewhat better . She reports abnormal menstrual cycles over past year , w 2-3 months without menses , but then has heavy 10-15 day bleeding . She has occ lower abdominal cramps cramps . She also reports easy bruising X 3 months , linette legs ; she denies epis taxis/gingival bleeding/melena/BRBPR/hematuria/hemoptysis. Pt is , 1 ab 1 miscarriage ( mole 2-3 yrs ago).She reports a 35 lb weight loss over 6 months but appetite OK ; mild fatigue . Cuurrently she has mild vaginal bleeding on and off since 12-16. Pt still w SOB/wheezing ; lightheadedness ; Hgb down to 6.6; still w mild vaginal bleeding. 12-23-17 Pt s/p Tx and iron iv X 1, started on oral iron , better overall w less weakness/ SOB. Bone Marrow w no iron, negative flow/FISH, no dyspoeisis ; otherwise negative. CT a/p essentially unremarkable except for minor abnormalities , 6mm bile duct, small ovarian cyst. - Current Medication List Current Medications: Active Medications Albuterol/Ipratropium (Duoneb -) 1 amp NEB RQID [facility] Last Admin: 12/23/17 07:41 Dose: 1 amp Ferrous Sulfate (Feosol -) 325 mg PO TIDCM [facility] Last Admin: 12/23/17 07:33 Dose: Not Given Guaifenesin (Mucinex Dm -) 1 tablet PO BID [facility] Last Admin: 12/22/17 21:07 Dose: 1 tablet Loratadine (Claritin -) 10 mg PO DAILY [facility] Last Admin: 12/22/17 15:25 Dose: 10 mg Methylprednisolone Sodium Succinate (Solu-Medrol -) 40 mg IVPUSH Q8H-IV [facility] Last Admin: 12/23/17 01:17 Dose: 40 mg Pantoprazole Sodium (Protonix -) 40 mg PO DAILY [facility] Last Admin: 12/22/17 11:37 Dose: 40 mg - Objective Vital Signs: Vital Signs Temperature 98.6 F 12/23/17 08:38 Pulse Rate 75 12/23/17 08:38 Respiratory Rate 20 12/23/17 08:38 Blood Pressure 100/50 12/23/17 08:38 O2 Sat by Pulse Oximetry (%) 100 12/22/17 21:00 Constitutional: Yes: Well Nourished, No Distress, Calm Eyes: Yes: WNL, Conjunctiva Clear, EOM Intact HENT: Yes: WNL, Atraumatic, Normocephalic Neck: Yes: WNL, Supple, Trachea Midline Cardiovascular: Yes: WNL, Regular Rate and Rhythm Respiratory: Yes: WNL, Regular, CTA Bilaterally, Wheezes Gastrointestinal: Yes: WNL, Normal Bowel Sounds, Soft Musculoskeletal: Yes: WNL Extremities: Yes: WNL Edema: No Labs: CBC, BMP 12/22/17 13:00 12/23/17 07:30 Problem List - Problems (1) Anemia Code(s): D64.9 - ANEMIA, UNSPECIFIED Qualifiers: Anemia type: iron deficiency Iron deficiency anemia type: chronic blood loss Qualified Code(s): D50.0 - Iron deficiency anemia secondary to blood loss (chronic) (2) Dizziness Code(s): R42 - DIZZINESS AND GIDDINESS (3) Weakness Code(s): R53.1 - WEAKNESS Assessment/Plan Pt w anemia due to iron def. 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 bleeding , still w prolonged menses now. Hgb up to 9. Body scans not showing any explanation for weight loss so far. Suggest route service representative imput , continue oral iron as outpatient X 6 mo. at least. Can order one more iv iron tomorrow.Pt can follow up w PCP/clinic for this and the weight loss. ; CBC's as necessary by PCP . Suggest check B12 / folate /LDH anyway.
--- NOTE | 2017-12-23 11:24 | PN ---
Progress Note (short form) - Note Progress Note: PULMONARY VSS/AFEBRILE/SPO2 99% PEAK FLOW 290L/M STILL WITH COUGH BUT LESS ANICTERIC CLEAR LUNGS NO WHEEZE S1S2 BS+ NO EDEMA LABS/MEDS/NOTES/IMAGES REVIEWED AWAITING EGD/COLONOSCOPY CLEARED FROM PULMONARY FOR PROCEDURE (1) Asthma Code(s): J45.909 - UNSPECIFIED ASTHMA, UNCOMPLICATED (2) Anemia Code(s): D64.9 - ANEMIA, UNSPECIFIED (3) Cough Code(s): R05 - COUGH Assessment/Plan steroids BD TX No smoking MONITOR H+H PEF OK FOR PROCEDURE Niesha IZAGUIRRE MD
--- NOTE | 2017-12-23 12:37 | PROC ---
Endoscopy Procedure Endoscopy procedure completed. Please see scanned procedure report. Mild gastritis in the fundus, otherwise normal EGD. Biopsies taken. Normal colonoscopy. OP capsule endoscopy if hemocult positive
--- NOTE | 2017-12-23 18:52 | PN ---
Physical Exam: SUBJECTIVE: Patient seen and examined at bedside. Had EGD/colonoscopy earlier. OBJECTIVE: Vital Signs Period Temp Pulse Resp BP Sys/Persaud Pulse Ox Last 24 Hr 98.4 F-99.5 F 54-87 18-20 100-135/50-83 96-100 GENERAL: The patient is awake, alert, and fully oriented, in no acute distress. LUNGS: Breath sounds CTA but coughing with each expiration HEART: Regular rate and rhythm, S1, S2 ABDOMEN: Soft, nontender, nondistended, normoactive bowel sounds, no guarding, no rebound EXTREMITIES: 2+ pulses, warm, well-perfused, no edema. NEUROLOGICAL: Cranial nerves II through XII grossly intact. Normal speech, gait not observed. Laboratory Results - last 24 hr 12/19/17 12/22/17 12/23/17 09:05 23:26 07:30 Sodium 140 Potassium 4.2 Chloride 105 Carbon Dioxide 26 Anion Gap 9 BUN 15 Creatinine 0.5 L Random Glucose 112 H Calcium 9.2 Stool Occult Blood Negative Blood Type O POSITIVE Antibody Screen Negative Crossmatch See Detail Active Medications Generic Name Dose Route Start Last Admin Trade Name Freq PRN Reason Stop Dose Admin Albuterol/Ipratropium 1 amp 12/19/17 16:00 12/23/17 15:51 Duoneb - NEB 1 amp RQID DEBRA Administration Ferrous Sulfate 325 mg 12/19/17 08:00 12/23/17 17:35 Feosol - PO 325 mg TIDCM DEBRA Administration Guaifenesin 1 tablet 12/22/17 14:15 12/23/17 09:44 Mucinex Dm - PO Not Given BID DEBRA Loratadine 10 mg 12/22/17 14:15 12/23/17 09:44 Claritin - PO Not Given DAILY DEBRA Methylprednisolone Sodium Succinate 40 mg 12/21/17 18:00 12/23/17 17:35 Solu-Medrol - IVPUSH 40 mg Q8H-IV DEBRA Administration Pantoprazole Sodium 40 mg 12/22/17 10:00 12/23/17 09:44 Protonix - PO Not Given DAILY DEBRA ASSESSMENT/PLAN 42 year-old female with a PMH significant for asthma, anemia, and AVM. Admited for asthma exacerbation and symptomatic anemia. 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 - New Patient This patient is new to me today: Yes Date on this admission: 12/23/17 - Critical Care Critical Care patient: No
[2017-12-24] MEDS: methylPREDNISolone NA SUCC 40 MG/1 ML VIAL IVPUSH SCH ×2 (02:29→09:12)
[2017-12-24] MEDS: FERROUS SO4 325 MG TABLET (FP) PO SCH ×2 (08:05→11:48)
[2017-12-24] MEDS: ALBUTEROL SO4 2.5/IPRATROPIUM 0.5 INH SOL 3 ML VIAL.NEB. NEB SCH ×2 (09:00→18:54)
[2017-12-24] MEDS ORDERED: PT OWN MED DRAWER 7, Y5N ONE ×2 (09:01→09:20)
[2017-12-24] MEDS: LORATADINE 10 MG TABLET PO SCH (09:10)
[2017-12-24] MEDS: guaiFENesin/D-METHORPHAN HB 1 EACH TAB.ER.12H PO SCH (09:11)
[2017-12-24] MEDS: PANTOPRAZOLE 40 MG TABLET (FP) PO SCH (09:12)
--- NOTE | 2017-12-24 11:06 | PN ---
Progress Note (short form) - Note Progress Note: NAD on RA. Some mild cough. Some pleuritic type CP. Overall feels better. Intake & Output 12/21/17 12/22/17 12/23/17 12/24/17 23:59 23:59 23:59 23:59 Intake Total 1400 350 0 Balance 1400 350 0 Last Vital Signs Temp Pulse Resp BP Pulse Ox 98.4 F 59 L 18 114/57 98 12/24/17 06:00 12/24/17 06:00 12/24/17 06:00 12/24/17 06:00 12/23/17 21:00 Active Medications Albuterol/Ipratropium (Duoneb -) 1 amp NEB RQID [facility] Last Admin: 12/24/17 09:00 Dose: 1 amp Ferrous Sulfate (Feosol -) 325 mg PO TIDCM [facility] Last Admin: 12/24/17 08:05 Dose: 325 mg Guaifenesin (Mucinex Dm -) 1 tablet PO BID [facility] Last Admin: 12/24/17 09:11 Dose: 1 tablet Loratadine (Claritin -) 10 mg PO DAILY [facility] Last Admin: 12/24/17 09:10 Dose: 10 mg Methylprednisolone Sodium Succinate (Solu-Medrol -) 40 mg IVPUSH Q8H-IV [facility] Last Admin: 12/24/17 09:12 Dose: 40 mg Pantoprazole Sodium (Protonix -) 40 mg PO DAILY [facility] Last Admin: 12/24/17 09:12 Dose: 40 mg Constitutional: Yes: No Distress, Anxious Eyes: Yes: Conjunctiva Clear, EOM Intact HENT: Yes: Atraumatic, Normocephalic Neck: Yes: Supple, Trachea Midline Cardiovascular: Yes: Regular Rate and Rhythm Respiratory: Yes: CTA Bilaterally. No: Accessory Muscle Use, Rales, Rhonchi, Stridor, Tachypnea, Wheezes ...Inspection: Yes: WNL ...Clubbing: No Gastrointestinal: Yes: Normal Bowel Sounds, Soft Renal/: Yes: WNL Musculoskeletal: Yes: WNL Extremities: Yes: WNL Edema: No Peripheral Pulses WNL: Yes Integumentary: Yes: WNL Neurological: Yes: WNL, Alert, Oriented ...Motor Strength: WNL Psychiatric: Yes: WNL, Alert, Oriented Labs: Laboratory Results - last 24 hr 12/19/17 09:05 Blood Type O POSITIVE Antibody Screen Negative Crossmatch See Detail Problem List - Problems (1) Asthma Code(s): J45.909 - UNSPECIFIED ASTHMA, UNCOMPLICATED (2) Anemia Code(s): D64.9 - ANEMIA, UNSPECIFIED (3) Cough Code(s): R05 - COUGH Assessment/Plan Symptoms likely due to significant anemia (?) component of costochondritis CAn switch to Short course of Prednisone (40mg OD for 5 days) Local heat therapy BD TX No smoking No smoking PFTs as an outpatient after 4 weeks No Pulmonary contraindication for D/C home Dr Busch Problem List - Problems (1) Asthma Code(s): J45.909 - UNSPECIFIED ASTHMA, UNCOMPLICATED (2) Anemia Code(s): D64.9 - ANEMIA, UNSPECIFIED Qualifiers: Anemia type: iron deficiency Iron deficiency anemia type: chronic blood loss Qualified Code(s): D50.0 - Iron deficiency anemia secondary to blood loss (chronic) (3) Cough Code(s): R05 - COUGH
[2017-12-24 12:37] LABS: HEMATOCRIT 34.4 % (32.4-45.2); HEMOGLOBIN 10.6 GM/dL (10.7-15.3); MCHC 30.7 g/dl (32.0-36.0); MEAN CELL VOLUME 64.5 fl (80-96); MEAN PLT VOLUME 9.7 fl (7.5-11.1); PLATELET COUNT 263 K/MM3 (134-434); RBC 5.33 M/mm3 (3.60-5.2); RDW 28.4 % (11.6-15.6); WHITE BLOOD COUNT 14.5 K/mm3 (4.0-10.0)
[2017-12-24 12:40] LABS: ADD RBC MORPHOLOGY YES; MCH 19.8 pg (25.7-33.7)
[2017-12-24 14:00] LABS: ANION GAP 6 (8-16); BILIRUBIN,TOTAL 0.4 mg/dL (0.2-1.0); BLOOD UREA NITROGEN 21 mg/dL (7-18); CALCIUM 9.2 mg/dL (8.5-10.1); CHLORIDE 103 mmol/L (98-107); CO2 27 mmol/L (21-32); CREATININE 0.5 mg/dL (0.55-1.02); GLUCOSE,RANDOM 100 mg/dL (74-106); MAGNESIUM 2.4 mg/dL (1.8-2.4); POTASSIUM 4.2 mmol/L (3.5-5.1); SGOT/AST 29 U/L (15-37); SGPT/ALT 71 U/L (12-78); SODIUM 136 mmol/L (136-145); TOT PROT 7.8 g/dl (6.4-8.2)
[2017-12-24 14:01] LABS: ALK PHOS 62 U/L (45-117)
--- NOTE | 2017-12-24 14:07 | DS ---
Physical Exam: SUBJECTIVE: Patient seen and examined OBJECTIVE: Vital Signs Period Temp Pulse Resp BP Sys/Persaud Pulse Ox Last 24 Hr 98.4 F-99.5 F 57-68 18-20 109-121/57-65 98-99 PHYSICAL EXAM GENERAL: The patient is awake, alert, and fully oriented, in no acute distress. LUNGS: Breath sounds CTA but coughing with each expiration HEART: Regular rate and rhythm, S1, S2 ABDOMEN: Soft, nontender, nondistended, normoactive bowel sounds, no guarding, no rebound EXTREMITIES: 2+ pulses, warm, well-perfused, no edema. NEUROLOGICAL: Cranial nerves II through XII grossly intact. Normal speech, gait not observed. LABS Laboratory Results - last 24 hr 12/19/17 12/24/17 09:05 11:43 WBC 14.5 H RBC 5.33 H Hgb 10.6 L D Hct 34.4 MCV 64.5 L MCH 19.8 L MCHC 30.7 L RDW 28.4 H Plt Count 263 MPV 9.7 Neutrophils % No Result Required. Lymphocytes % No Result Required. Blood Type O POSITIVE Antibody Screen Negative Crossmatch See Detail HOSPITAL COURSE: Date of Admission:12/19/17 Date of Discharge: 12/24/17 42 year-old female with a PMH significant for asthma, anemia, and AVM. Admitted for asthma exacerbation and symptomatic anemia. 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 One is for prednisone and the other is for iron supplements. Take these medications as directed. It is VERY IMPORTANT that you follow up with Dr. Keith at the [facility]. You need a gynecological evaluation and that can be arranged for you by Dr. Keith and her staff. Call Dr. Keith's office on Tuesday morning to make an appointment to be seen this week. Contact information is enclosed. Return to the emergency department for any new or worsening symptoms. Referrals: Addy Keith MD [Staff Physician] - 1 Week Disposition: HOME - Home Medications Comprehensive Discharge Medication List: Ambulatory Orders Albuterol Sulfate Inhaler - [Ventolin Hfa Inhaler -] 2 inh PO Q4H 12/19/17 This patient is new to me today: No Emergency Visit: Yes ED Registration Date: 12/19/17 Care time: The patient presented to the Emergency Department on the above date and was hospitalized for further evaluation of their emergent condition. Critical Care patient: No - Discharge Referral Referred to [facility] Med P.C.: No
[2017-12-24 15:23] LABS: ANISOCYTOSIS 3+
[2017-12-24 15:24] LABS: PLATELET ESTIMATE ADEQUATE
[2017-12-24 15:26] VITALS: BP 123/69; PULSE 81; TEMP 98.3
[2017-12-25] MEDS ORDERED: predniSONE 20 MG TABLET (UD) PO SCH (10:00)
--- NOTE | 2017-12-26 11:09 | PATH ---
Surgical Pathology Report Patient Name: MAGDA WATSON [facility]. Rec. #: [id number] /Age/Gender: 1975 (Age: 42) / F Account: [id number] Location: [facility] MED/SURG Taken: 12/23/2017 Received: 12/23/2017 Reported: 12/26/2017 Physicians: Milad Hopson M.D. Specimen(s) Received A: BX DUODENUM B: BX ANTRUM AND BODY C: BX OF GASTRIC FUNDUS Clinical History Gastritis, anemia Final Diagnosis A. DUODENUM, SECOND PORTION, BIOPSY: DUODENAL MUCOSA WITH NO PATHOLOGIC CHANGES. NO HISTOLOGIC EVIDENCE OF GLUTEN SENSITIVE ENTEROPATHY (CELIAC SPRUE) IDENTIFIED. B. STOMACH, ANTRUM AND BODY, BIOPSY: GASTRIC ANTRAL TYPE MUCOSA WITH MILD CHRONIC GASTRITIS AND FOCAL INTESTINAL METAPLASIA. NO DYSPLASIA IDENTIFIED. IMMUNOSTAIN FOR H. PYLORI IS POSITIVE (MANY ORGANISMS). C. STOMACH, FUNDUS, BIOPSY: MODERATE CHRONIC ACTIVE GASTRITIS. IMMUNOSTAIN FOR H. PYLORI IS POSITIVE (MANY ORGANISMS). Electronically Signed Tobias Rueda M.D. Gross Description A. Received in formalin, labeled "biopsy second portion duodenum" are 2 gray, irregular portions of soft tissue measuring 0.3 cm. in greatest dimension. The specimens are submitted in toto in one cassette. B. Received in formalin, labeled "biopsy antrum and body" are 4 gray, irregular portions of soft tissue measuring 0.1-0.2 cm. in greatest dimension. The specimens are submitted in toto in one cassette. C. Received in formalin, labeled "biopsy gastric fundus gastritis" are 2 gray, irregular portions of soft tissue measuring 0.2 cm. in greatest dimension. The specimens are submitted in toto in one cassette. [facility]/12/23/2017 [facility]/12/23/2017
== END 2017-12-24 15:31 | disposition home or self-care (01) | DRG 532 ==
LOC: JER 01:22 → JERBED 06:04 → J8W 12:22
PROVIDERS: ADMIT Internal Medicine; ATTEND Nurse Practitioner Acute Care
PROC: 30233N1 Transfusion of Nonautologous Red Blood Cells into Peripheral Vein, Percutaneous Approach (ICD-10-PCS; principal; 2017-12-20)
PROC: 07DR3ZX Extraction of Iliac Bone Marrow, Percutaneous Approach, Diagnostic (ICD-10-PCS; 2017-12-20)
PROC: 0DD98ZX Extraction of Duodenum, Via Natural or Artificial Opening Endoscopic, Diagnostic (ICD-10-PCS; 2017-12-23)
PROC: 0DD68ZX Extraction of Stomach, Via Natural or Artificial Opening Endoscopic, Diagnostic (ICD-10-PCS; 2017-12-23)
DX: N92.0 Excessive and frequent menstruation with regular cycle (principal); J45.901 Unspecified asthma with (acute) exacerbation; E87.6 Hypokalemia; R00.0 Tachycardia, unspecified; R42 Dizziness and giddiness; E11.9 Type 2 diabetes mellitus without complications; B96.81 Helicobacter pylori [H. pylori] as the cause of diseases classified elsewhere; K29.50 Unspecified chronic gastritis without bleeding; R05 Cough; R63.4 Abnormal weight loss; D62 Acute posthemorrhagic anemia; Q28.2 Arteriovenous malformation of cerebral vessels
CPT/HCPCS: 36415; 36430; 70450-TC; 71046-TC-FY; 74176-TC; 80048; 80053; 82272; 82550; 82607; 82728; 82746; 83021; 83036; 83540; 83550; 83615; 83735; 84100; 84439; 84443; 84466; 84480; 84484; 84703; 85025; 85027; 85044; 85660; 85730; 86850; 86900; 86901; 86922; 88300-TC; 88305-TC; 88313-TC; 93005; 93010; 94640; 99283-25; J1756; J7030; P9038; P9058

== ENCOUNTER 2021-10-20 14:05 | Emergency (ER) | payer OTHER ==
[2021-10-20 14:38] VITALS: TEMP 97.8; BMI 25.7
[2021-10-20 17:06] VITALS: BP 130/78; PULSE 87
== END 2021-10-20 17:06 | disposition home or self-care (01) ==
LOC: JER 14:05
DX: S09.90XA Unspecified injury of head, initial encounter (principal)
CPT/HCPCS: 70450-TC; 99284-25